=== PATIENT | female | born 1960 | race Caucasian/White ===

== ENCOUNTER 2020-10-17 11:52 | Outpatient (REF) | payer OTHER, SELFPAY | END 2020-10-17 11:53 | disposition home or self-care (01) | LOC: HO.LAB 11:52 | PROVIDERS: Visit Provider Nurse Practitioner Family | DX: Z13.89 Encounter for screening for other disorder (principal) ==

== ENCOUNTER → 2020-10-30 14:59 | Outpatient (BNVA) | payer OTHER, SELFPAY | PROVIDERS: PCP Nurse Practitioner Family; Visit Provider Advanced Practice Midwife | DX: Z76.89 Persons encountering health services in other specified circumstances (principal) ==

== ENCOUNTER 2021-03-22 06:22 | Outpatient (REF) | payer BC, SELFPAY ==
[2021-03-22 12:23] LABS: Alanine Aminotransferase 27 U/L (0-31); Albumin Level 4.6 g/dL (3.5-5.0); Alkaline Phosphatase 68 U/L (39-117); Anion Gap 13 (12-20); Aspartate Amino Transferase 18 U/L (5-31); Bilirubin Total 0.7 mg/dL (0.0-1.0); Blood Urea Nitrogen 16 mg/dL (9-16); Calcium 9.1 mg/dL (8.4-10.2); Carbon Dioxide 27 mmol/L (22-29); Chloride 107 mmol/L (96-108); Cholesterol 161 mg/dL; Estimated Glomerular Filt Rate 52; Glucose Fasting 100 mg/dL (60-99); HDL Cholesterol 58 mg/dL; LDL Cholesterol Calculated 76 mg/dl; Potassium 4.3 mmol/L (3.3-5.1); Sodium 143 mmol/L (135-145); Triglycerides 137 mg/dL
== END 2021-03-22 06:23 | disposition home or self-care (01) ==
LOC: HO.HMGCLDS 06:22
PROVIDERS: PCP Nurse Practitioner Family; Visit Provider Nurse Practitioner Family
DX: Z00.00 Encounter for general adult medical examination without abnormal findings (principal); Z20.822 Contact with and (suspected) exposure to COVID-19
CPT/HCPCS: 36415; 80053; 80061; 84443; U0005

== ENCOUNTER 2023-06-26 08:28 | Outpatient (AMB) | payer BC, SELFPAY ==
--- NOTE | 2023-06-26 09:11 | MHC.OFFWIV ---
Intake Vital Signs 06/26/23 09:13 Height 5 ft 4 in BP 114/70 Blood Pressure Location Lt brachial Position Sitting Pulse 83 Pulse Source Pulse Oximeter Temp 96.8 F Temp Source Temporal Artery Scan Pulse Oximetry (%) 97 Oxygen Delivery Method Room Air Intake Visit Reasons: EP Headache/BP Check (Lobby) Intake Note: Pt is here requesting a bp check. Pt is also requesting refills on atorvastatin and losartan. Patient Tobacco Use Status: Never used Tobacco Allergies aspartame Allergy (Severe, Verified 06/26/23 09:11) mouth feels on fire, throat swells codeine [CODEINE] Allergy (Mild, Verified 06/26/23 09:11) NAUSEA & VOMITING Codeine Sulfate Allergy (Mild, Uncoded 06/26/23 09:11) nausea, vomiting Do you need a note to return to daycare/school/sports/work: No HPI HPI Comments History of Present Illness Details 62-year-old female who presents for medication refill. Patient states that her prescriptions are getting rate is she has not seen a doctor in a little while. She called to have her prescriptions be [place] at that she need to come in and see a provider her but not schedule for 2 weeks. She was told she needed to come in and have her blood pressure checked and have her medications refilled. She denies any symptoms at this time. [facility], [facility] Social History Alcohol intake: current Alcohol intake frequency: a few times a week Patient Tobacco Use Status: Never used Tobacco Sexual orientation: Straight/Heterosexual Review of Systems Const All systems reviewed & are unremarkable except as noted in HPI and below Denies fever(s), Denies headache(s) and Denies weakness Eyes Reports no additional complaints ENT Reports no additional complaints and Denies headache(s) Card Reports no additional complaints, Denies chest pain, Denies leg edema and Denies dyspnea Resp Denies cough and Denies dyspnea GI Denies abdominal pain, Denies nausea and Denies vomiting Denies urinary frequency and Denies dysuria Musc Reports no additional complaints Neuro Denies headache(s) and Denies weakness Psych Reports no additional complaints Endo Reports no additional complaints Physical Exam Vital Signs: Last Vital Signs Temp 96.8 F 06/26/23 09:13 Pulse 83 08/03/23 09:13 BP 114/70 06/26/23 09:13 Pulse Ox 97 06/26/23 09:13 Oxygen Delivery Method Room Air 06/26/23 09:13 Resp Effort & Inspection: normal respiratory effort Auscultation: clear to auscultation bilaterally Cardio Rate: regular rate Rhythm: regular rhythm Assessment & Plan Assessment & Plan (1) Medication refill: Code(s): Z76.0 - Encounter for issue of repeat prescription Plan VSS. Exam patient presents alert and oriented in no acute distress exam is otherwise unremarkable. Will refill medications. Discharge instructions, follow up and treatment are discussed with patient in my usual fashion. Alternatives in treatment are also discussed. The patient will return for worsening symptoms or as needed. Advised that any labs/imaging ordered will be followed up on and contact made if further treatment needed. Counseled that patient's condition may require further evaluation and/or treatment. Symptoms of concern for worsening disorder discussed in detail in my customary manner. Patient does verbalize understanding of the plan, there are no apparent barriers to communication. The patient is given the opportunity to ask questions and have them answered to his/her satisfaction Medications: New atorvastatin 20 mg PO DAILY 30 days 30 tabs 0RF losartan 25 mg PO DAILY 30 days 30 tabs 0RF Coding Level of Care Code Est Pt Level 2 (67839) Diagnoses Medication refill Z76.0
[2023-06-26 09:13] VITALS: BP 114/70; PULSE 83; TEMP 36; O2SAT 97
== END 2023-06-26 09:53 | disposition home or self-care (01) ==
PROVIDERS: PCP Nurse Practitioner Family; Visit Provider Physician Assistant
DX: Z76.0 Encounter for issue of repeat prescription (principal)
CPT/HCPCS: 99212

== ENCOUNTER 2023-07-10 08:28 | Outpatient (AMB) | payer BC, SELFPAY ==
--- NOTE | 2023-07-10 08:49 | A.OFFPC_ITS ---
Vital Signs 07/10/23 08:52 Height 5 ft 4 in Weight 180 lb BMI 30.9 BP 132/86 Blood Pressure Location Rt brachial Position Sitting Pulse 81 Pulse Source Pulse Oximeter Pulse Oximetry (%) 96 Oxygen Delivery Method Room Air Intake Visit Reasons: Medication follow up Allergies aspartame Allergy (Severe, Verified 07/10/23 08:53) mouth feels on fire, throat swells codeine [CODEINE] Allergy (Mild, Verified 07/10/23 08:53) NAUSEA & VOMITING Codeine Sulfate Allergy (Mild, Uncoded 07/10/23 08:53) nausea, vomiting Medication List - Last Reconciled 07/10/23 [facility] ator[facility]atin 20 mg PO DAILY 30 days fluticasone propionate 50 mcg/actuation (Allergy Relief (fluticasone)) 1 spray intranasal BID 30 days losartan 25 mg PO DAILY 30 days Tobacco use date assessed: 07/10/23 Dental Screening Dental Screen Date: 07/10/23 Did you have a dental visit in the last 12 months?: No Did you have a dental problem in the last 6 months where you did not have access to dental care?: No Was dental information given to patient?: Patient has dentist HPI Medication follow up HPI Details Pt is here for a PE. Will order labs. Colon screen is up to date. Has a churn tender appointment scheduled. Mammo is scheduled. Will order bone density and vitamin D. [facility] Social History Housing: House Alcohol intake: current Alcohol intake frequency: a few times a week Patient Tobacco Use Status: Never used Tobacco e-Cigarette/Vaping Use: Never Used Sexual orientation: Straight/Heterosexual Cognitive needs: No Hearing needs: No Vision needs: No Review of Systems Const Denies chills and Denies fever(s) Eyes Denies blurry vision ENT Denies vertigo, Denies dizziness and Denies sore throat Card Denies chest pain at rest, Denies chest pain with activity, Denies diaphoresis, Denies dyspnea and Denies dyspnea on exertion Resp Denies cough, Denies dyspnea, Denies dyspnea on exertion and Denies wheezing GI Denies abdominal pain, Denies melena, Denies hematochezia, Denies constipation, Denies diarrhea and Denies loose stools Denies hematuria Musc Denies numbness and Denies tingling Skin/Breast Denies lesions Neuro Denies vertigo, Denies dizziness, Denies numbness and Denies tingling Psych Denies anxiety, Denies depression, Denies homicidal ideation, Denies suicidal ideation and Denies other (substance abuse) Aller/Immun Denies wheezing Physical exam (Primary Care) Vital Signs: Last Vital Signs Pulse 81 07/10/23 08:52 BP 132/86 07/10/23 08:52 Pulse Ox 96 07/10/23 08:52 Oxygen Delivery Method Room Air 07/10/23 08:52 BMI result Body Mass Index 30.9 Tobacco/Smoking Status: Tobacco use Status Tobacco use date assessed 07/10/23 07/10/23 08:56 Patient Tobacco Use Status Never used Tobacco 07/10/23 08:51 e-Cigarette/Vaping Use Never Used 07/10/23 08:56 Const General: cooperative Nutritional Appearance: well nourished Orientation/consciousness: patient oriented x3 HENMT Head: Yes normal to inspection, Yes normocephalic and Yes atraumatic Ears: TM's normal bilaterally Eyes General: appearance normal, both eyes and all related structures Alignment and Position: alignment normal and position normal Neck Neck: Yes normal visual inspection and Yes no lymphadenopathy Thyroid: Thyroid normal Resp Effort & Inspection: normal respiratory effort Auscultation: clear to auscultation bilaterally Cardio Rate: regular rate Rhythm: regular rhythm Heart sounds: S1 normal heart sound present, S2 normal heart sound present and no murmurs GI Palpation (GI): Soft to palpation and nontender Auscultation: normal bowel sounds Skin Rashes: no rashes Neuro General: patient oriented x3, moves all extremities, no focal motor deficits and deep tendon reflexes 2+ bilaterally Romberg Test: Negative Psych Appearance: grossly normal Mental Status: mental status grossly normal Speech and movement: Normal speech and movement present Affect: normal affect Attitude: cooperative Thought process: Normal thought process present Thought content: Normal thought content present Insight: Good insight present (Psych) Judgement: Good judgement present (Psych) Assessment and Plan Assessment & Plan (1) Post-menopausal: Code(s): Z78.0 - Asymptomatic menopausal state Plan: Bone density and vitamin D ordered (2) Physical exam: Code(s): Z00.00 - Encounter for general adult medical examination without abnormal findings Plan: Labs ordered Plan The patient agreed to the use of a medical charge entry specialist for this encounter. Scribed for DENIZ Cedeño by Phuong Doshi medical charge entry specialist, on 07/10/2023 at 09:05 EST. Orders: Orders XR DEXA axial skeleton Today Z78.0 - Asymptomatic menopausal state Vitamin D 25-OH Total Today Z78.0 - Asymptomatic menopausal state Comprehensive [place]. Panel Fast Today Z00.00 - Encounter for general adult medical examination without abnormal findings Lipid Panel Today Z00.00 - Encounter for general adult medical examination without abnormal findings TSH reflex Free T4 Today Z00.00 - Encounter for general adult medical examination without abnormal findings Complete Blood Count Auto Diff Today Z00.00 - Encounter for general adult medical examination without abnormal findings UA CC w/rflx Micro + Cult Today Z00.00 - Encounter for general adult medical examination without abnormal findings Medications: Refilled fluticasone propionate 50 mcg/actuation (Allergy Relief (fluticasone)) administer into each nostril 1 spray intranasal BID 30 days 16 grams 3RF Coding Level of Care Code Est Pt Prev Care 40-64y(70893) Diagnoses Post-menopausal Z78.0 Physical exam Z00.00
[2023-07-10 08:52] VITALS: BP 132/86; PULSE 81; O2SAT 96; BMI 30.9
== END 2023-07-10 09:17 | disposition home or self-care (01) ==
PROVIDERS: Visit Provider Nurse Practitioner Family
DX: Z78.0 Asymptomatic menopausal state (principal); Z00.00 Encounter for general adult medical examination without abnormal findings
CPT/HCPCS: 99396

== ENCOUNTER 2023-07-10 09:18 | Outpatient (REF) | payer BC, SELFPAY ==
[2023-07-10 11:08] LABS: MANUAL DIFF FLAG NO
[2023-07-10 11:37] LABS: Basophils Percent Auto 0.3 % (0-2); Eosinophils Absolute Auto 0.1 X10*3/uL (0.0-0.4); Eosinophils Percent Auto 1.6 % (0-4); Hematocrit 39.3 % (37.0-47.0); Hemoglobin 12.9 g/dl (12.0-16.0); Imm Gran Abs Auto 0.02 X10*3/uL (0.00-0.03); Imm Gran Pct Auto 0.3 % (0.0-0.4); Lymphocytes Absolute Auto 2.1 X10*3/uL (1.2-4.9); Lymphocytes Percent Auto 29.6 % (20-40); Mean Corpuscular HGB Conc 32.8 g/dl (31.0-35.0); Mean Corpuscular Hemoglobin 29.9 pg (27.0-33.0); Mean Corpuscular Volume 91.2 fL (80.0-98.0); Mean Platelet Volume 12.7 fL (9.4-12.3); Monocytes Absolute Auto 0.4 X10*3/uL (0.1-1.2); Monocytes Percent Auto 5.8 % (2-11); Neutrophils Absolute Auto 4.4 x10*3/uL (2.0-8.3); Neutrophils Percent Auto 62.4 % (45-73); Platelet Count 204 X10*3/uL (160-400); Red Blood Count 4.31 X10*6/uL (4.20-5.50); Red Cell Distribution Width 12.3 % (11.0-16.0); White Blood Count 7.1 X10*3/uL (4.8-10.8)
[2023-07-10 11:55] LABS: Appearance Urine Cloudy; Color Urine Yellow; Glucose Urine UA Negative (Negative); Leukocyte Esterase Urine Large (3+) (Negative); Nitrite Urine Negative (Negative); PH 6.5 (5.0-9.0); UMIC TRIGGER UACC YES; Urine Blood Negative (Negative); Urine Ketones Negative (Negative); Urine Protein Trace mg/dL (Neg-Trace)
[2023-07-10 11:57] LABS: Alanine Aminotransferase 31 U/L (0-31); Albumin Level 4.5 g/dL (3.5-5.0); Alkaline Phosphatase 69 U/L (39-117); Anion Gap 10 (12-20); Aspartate Amino Transferase 19 U/L (5-31); Bilirubin Total 0.8 mg/dL (0.0-1.0); Blood Urea Nitrogen 19 mg/dL (9-16); Calcium 9.5 mg/dL (8.4-10.2); Carbon Dioxide 28 mmol/L (22-29); Chloride 107 mmol/L (96-108); Cholesterol 153 mg/dL; Estimated Glomerular Filt Rate 58; Glucose Fasting 101 mg/dL (60-99); HDL Cholesterol 50 mg/dL; LDL Cholesterol Calculated 70 mg/dl; Sodium 141 mmol/L (135-145); Total Protein 7.3 g/dL (6.5-8.0); Triglycerides 166 mg/dL
[2023-07-10 12:00] LABS: Bacteria Urine 2+ (None Seen); Hyaline Casts Urine 0-2 /LPF (0-2); UACC Culture Trigger YES; WBC Urine >50 /HPF (0-5)
[2023-07-10 12:15] LABS: Vitamin D 25-OH Total 46.7 ng/mL (>30)
== END 2023-07-10 09:19 | disposition home or self-care (01) ==
LOC: HO.HMGCLDS 09:18
PROVIDERS: PCP Nurse Practitioner Family; Visit Provider Nurse Practitioner Family
DX: Z00.00 Encounter for general adult medical examination without abnormal findings (principal); Z78.0 Asymptomatic menopausal state; R82.90 Unspecified abnormal findings in urine; M85.80 Other specified disorders of bone density and structure, unspecified site
CPT/HCPCS: 36415; 80053; 80061; 81001; 82306; 84443; 85025; 87086

== ENCOUNTER 2023-07-18 14:27 | Outpatient (REF) | payer BC, SELFPAY ==
--- NOTE | ~2023-07-18 | MM_ITS ---
MM/XR DEXA axial skeleton IMPRESSION: 1. DIAGNOSIS: Osteopenia based on the lowest T-score value of -2.0 in the femoral neck applying World Health Organization criteria. 2. 10-YEAR FRACTURE RISK PREDICTION, FRAX: Major osteoporotic fracture (clinical spine, forearm, hip or shoulder) 9.8%. Hip fracture 1.3%. 3. Treatment Recommendations: NOF guidelines recommend consideration for treatment in postmenopausal women and men age 50 and older presenting with the following: -A hip or vertebral (clinical or morphometric) fracture. -T-score less than or equal to -2.5 at the femoral neck or spine after appropriate evaluation to exclude secondary causes. -Low bone mass at the hip or spine and a 10-year fracture probability by FRAX of greater than or equal to 3% for hip fracture or greater than or equal to 20% for major osteoporotic fracture based on the [place] adapted WHO algorithm. 4. Other Recommendations: All treatment decisions require clinical judgment and consideration of individual patient factors, including patient preferences, comorbidities, previous drug use, risk factors not captured in the FRAX model (e.g. frailty, falls, vitamin D deficiency, increased bone turnover, interval significant decline in bone density) and possible under or overestimation of fracture risk by FRAX. Additional medical evaluation for secondary cause of low bone mineral density may be appropriate. FUTURE SCAN RECOMMENDATION: People with diagnosed cases of osteoporosis or at high risk for fracture should have regular bone mineral density tests. For patients eligible for Medicare, routine testing is allowed once every 2 years. The testing frequency can be increased to one year for patients who have rapidly progressing disease, those who are receiving or discontinuing medical therapy to restore bone mass, or have additional risk factors. EXAMINATION: BONE DENSITOMETRY CLINICAL INDICATION: Asymptomatic menopausal state. COMPARISON: This is the patient's baseline examination. TECHNIQUE: Using a [employer] DXA System (software version: 13.1) manufactured by [employer], dual-energy x-ray absorptiometry was performed of the lumbar spine and left hip. The images are of good technical quality. Summary results are attached. FINDINGS: LEFT FEMUR, NECK: BMD 0.760 g/cm2, Z-score -1.0, T-score -2.0, osteopenia. LEFT FEMUR, TOTAL: BMD 0.882 g/cm2, Z-score -0.4, T-score -1.0, normal. AP SPINE L1-L4: BMD 1.051 g/cm2, Z-score -0.3, T-score -1.1, osteopenia. IDENTIFIED RISK FACTORS: Left oophorectomy, menopause. HISTORY OF FRACTURE: None listed. MEDICATIONS: Vitamin D.
== END 2023-07-18 14:28 | disposition home or self-care (01) ==
LOC: HO.MAMMO 14:27
PROVIDERS: PCP Nurse Practitioner Family; Visit Provider Nurse Practitioner Family
DX: Z13.820 Encounter for screening for osteoporosis (principal); Z78.0 Asymptomatic menopausal state
CPT/HCPCS: 77080

== ENCOUNTER → 2023-07-18 14:30 | Outpatient (BNV) | payer BC, SELFPAY | PROVIDERS: PCP Nurse Practitioner Family; Visit Provider Radiology Diagnostic Radiology | DX: M85.89 Other specified disorders of bone density and structure, multiple sites (principal) | CPT/HCPCS: 77080 ==

== ENCOUNTER 2023-10-15 08:37 | Outpatient (AMB) | payer BC, SELFPAY ==
--- NOTE | 2023-10-15 09:17 | AM.OFFWIN_ITS ---
<Statement entered by SERGIO Greer - 10/15/23 14:12> I did not see this patient. Intake Vital Signs 3 10/15/23 09:19 Weight 182 lb BP 132/90 H Blood Pressure Location Lt brachial Position Sitting Pulse 81 Pulse Source Pulse Oximeter Pulse Oximetry (%) 98 Oxygen Delivery Method Room Air Intake Visit Reasons: EST/sinus issues for 2 weeks (lobby masked) Intake Note: Patient here because she is traveling and needs patches for sea sickness that go behind the ears. Has been having sinus issues for about 2 weeks. she went to [place] and started with post nasal drip but it has worsened. She has been taking otc meds. Patient Tobacco Use Status: Never used Tobacco Allergies aspartame Allergy (Severe, Verified 10/15/23 09:24) mouth feels on fire, throat swells codeine [CODEINE] Allergy (Mild, Verified 10/15/23 09:24) NAUSEA & VOMITING Codeine Sulfate Allergy (Mild, Uncoded 10/15/23 09:24) nausea, vomiting Do you need a note to return to daycare/school/sports/work: No HPI HPI Comments History of Present Illness Details 1006 63 year female presents w/ sinus congest ion, fatigue, malaise, post nasal drip X 2 weeks worsening Status post can coming back home from a trip from [place]. She has frequent sinus infections. Not improving with OTC meds. Also requesting a medication for motion sickness going on a 18 day cruise and gets sea-sick. denies chest pain, shortness of breath, nausea, vomiting, abdominal pain, fevers, chills, vision changes, dizziness and weakness PE discomfort to facial sinuses. negative NIH stroke scale likely sinusitis, versus viral illness. Unlikely intracranial hemorrhage, stroke, posterior stroke, meningitis, encephalitis. No signs of pneumonia, PE. Plan at this time discharge with Augmentin and will send scopolamine patches [facility] Housing: House Alcohol intake: current Alcohol intake frequency: a few times a week Patient Tobacco Use Status: Never used Tobacco e-Cigarette/Vaping Use: Never Used Sexual orientation: Straight/Heterosexual Cognitive needs: No Hearing needs: No Vision needs: No Review of Systems Const Details: Constitutional : No Weight loss, No Fever, No Chills, + Fatigue, + Malaise ENT/Mouth : No sore throat, No Rhinorrhea, + sinus infection Eyes: No Eye Pain, No Swelling, No Redness Cardiovascular : No Chest Pain, No SOB, No Dyspnea on Exertion, No Orthopnea, No Edema, No Palpitations Respiratory : No Cough, No Sputum, No Wheezing Gastrointestinal : No Nausea, No Vomiting, No Diarrhea, No Constipation, No abdominal Pain, No Hematochezia, No Melena Genitourinary : No Dysuria, No Urinary Frequency, No Hematuria, Musculoskeletal : No joint pain, No Myalgias, No Joint Swelling Skin : No Skin Lesions, No rash Neuro : + Weakness, No Numbness, No Dizziness, No Headache Psych : No Anxiety/Panic, No Depression All other systems reviewed and are negative All systems reviewed & are unremarkable except as noted in HPI and below Physical Exam Vital Signs: Last Vital Signs Pulse 81 10/15/23 09:19 BP 132/90 H 10/15/23 09:19 Pulse Ox 98 10/15/23 09:19 Oxygen Delivery Method Room Air 10/15/23 09:19 vss Appearance: Alert.? Oriented X3.? No acute distress.? Head: Normocephalic, atraumatic, no step-offs or deformities Eyes: Pupils equal, round and reactive to light.? Neck: Normal inspection.? Neck supple.? CVS: Normal heart rate and rhythm.? Pulses normal.? Respiratory: No respiratory distress.? Breath sounds normal.? Abdomen: Soft and nontender.? Skin: Skin warm and dry.? Normal skin color.? Normal skin turgor.? Extremities: No lower extremity edema.? No calf ttp. 5/5 strength to bilateral upper and lower extremities Back: No midline tenderness, no C-spine tenderness, full range of motion, no CVA tenderness bilaterally Neuro: Oriented X 3.? No motor deficit.? No sensory deficit. CN 2-12 intact. Normal finger to nose, heel to womack Assessment & Plan Assessment & Plan (1) Acute sinusitis: Code(s): J01.90 - Acute sinusitis, unspecified (2) Motion sickness: Code(s): T75.3XXA - Motion sickness, initial encounter Plan Take your medications as prescribed. If you were prescribed antibiotics today, it is important that you take your medication to their entirety, do not skip any doses, do not finish them early. Follow-up with your primary care provider this week. Return to the emergency department with new or worsening symptoms. In case of emergency call 911 Coding Level of Care Code Est Pt Level 3 (09536) Diagnoses Acute sinusitis J01.90 Motion sickness T75.3XXA
[2023-10-15 09:19] VITALS: BP 132/90; PULSE 81; O2SAT 98
== END 2023-10-15 11:13 | disposition home or self-care (01) ==
PROVIDERS: PCP Nurse Practitioner Family; Visit Provider Physician Assistant
DX: J01.90 Acute sinusitis, unspecified (principal); T75.3XXA Motion sickness, initial encounter
CPT/HCPCS: 99213

== ENCOUNTER 2023-11-26 08:39 | Outpatient (AMB) | payer BC, SELFPAY ==
[2023-11-26 08:41] VITALS: BP 122/80; BMI 31.8
--- NOTE | 2023-11-26 08:41 | MHC.OFFVIS ---
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 She is doing well with concerns: some stress incontinence with chronic allergy cough. Attempting to eat a healthy diet with calcium and vitamin D and stays active with exercise. Currently sexually active. Denies any vaginal dryness or irritation. STI testing offered; she declines. Last pap smear; 2016. Last mammogram; 2022. Colonoscopy is UTD. Denies any family history of breast, ovarian or colon cancer. [facility] Medical History Breast cyst High cholesterol Hypertension Osteopenia Surgical History History of bunionectomy H/O ovarian cystectomy Family History (Updated 11/26/23 @ 09:13 by Olivia Sifuentes Aishwarya) Mother Lung cancer Father Prostate cancer Hypertension Social History Housing: House Alcohol intake: current Alcohol intake frequency: a few times a week Patient Tobacco Use Status: Never used Tobacco e-Cigarette/Vaping Use: Never Used Sexually active: No Sexual orientation: Straight/Heterosexual Gender identity: Female Cognitive needs: No Hearing needs: No Vision needs: No Female Reproductive History Menstrual Menopause type: natural Age of menopause: 50 Total pregnancies: 2 Full term: 1 Number of Living Children: 1 Date of last pap smear: 10/09/17 (neg pap and hpv) Date of Mammogram: 08/18/23 (Birad 2) Review of Systems Const All systems reviewed & are unremarkable except as noted in HPI and below Reports as per HPI Eyes Reports no additional complaints ENT Reports no additional complaints Card Reports no additional complaints Resp Reports no additional complaints GI Reports as per HPI and Reports no additional complaints Reports as per HPI Musc Reports no additional complaints Skin/Breast Reports as per HPI Neuro Reports no additional complaints Psych Reports no additional complaints Endo Reports no additional complaints Vivek/Lymph Reports no additional complaints Aller/Immun Reports no additional complaints Physical Exam Vital Signs: Last Vital Signs BP 122/80 11/26/23 08:41 BMI result Body Mass Index 31.8 Const General: cooperative, healthy appearing, no acute distress, well developed and alert Orientation/consciousness: patient oriented x3 HEENT Head: Yes normal to inspection Eyes General: appearance normal, both eyes and all related structures Neck Neck: Yes normal visual inspection Thyroid: Thyroid normal Chest Chest palpation & inspection: normal inspection of the chest and other (no puckering, dimpling, peau de orange, retraction, discharge, masses) Breast/axilla inspection: normal inspection of the breasts Breast/axilla palpation: normal palpation of the breasts Resp Effort & Inspection: normal respiratory effort GI Inspection: Yes normal to inspection and Yes obesity (rectus diastasis) Palpation (GI): Soft to palpation Rectal Exam - Female: deferred General: Yes bladder normal to palpation External Female Exam: normal external appearance and normal appearance of the urethra Speculum Exam - Vagina: normal appearance of the vagina, normal palpation, normal vaginal discharge and vagina atrophic Speculum Exam - Cervix: normal appearance of the cervix and normal palpation Bimanual exam- vagina & uterus: normal bimanual exam, normal palpation, uterine size normal, bladder normal to palpation, normal palpation and non-tender Bimanual Exam- Adnexa, other: no masses Skin General skin exam: no rashes or lesions noted Rashes: no rashes Neuro General: patient oriented x3 Cognition (Neuro): normal cognition Extrem General: Yes normal to inspection Psych Attitude: cooperative Thought process: Normal thought process present Assessment & Plan Assessment & Plan (1) Encounter for well woman exam with routine gynecological exam: Code(s): Z01.419 - Encounter for gynecological examination (general) (routine) without abnormal findings Plan Discussed: Current recommendations for pap smears per ASCCP guidelines. Breast awareness, periodic self breast exams and yearly mammogram. Maintain a healthy lifestyle, well balanced diet including Calcium 1,200 mg and Vitamin D 600 IU daily, and routine exercise. Consider Flaxseed 1,200mg qd. Contact the office with any postmenopausal bleeding. All of her questions and concerns were addressed to the best of my ability. RTO in 1 year for annual machine tracer exam. This note is constructed using voice recognition software. While every effort has been made to ensure accuracy, chemist instrumentation errors may have been included. Orders: Orders MM tomosynthesis screening BI Today Z12.31 - Encounter for screening mammogram for malignant neoplasm of breast Pap Smear Today Z01.419 - Encounter for gynecological examination (general) (routine) without abnormal findings Coding Level of Care Code New Pt Prev Care 40-64y(41844) Diagnoses Encounter for well woman exam with routine gynecological exam Z01.419
== END 2023-11-26 09:20 | disposition home or self-care (01) ==
LOC: HO.HWS 08:39
PROVIDERS: PCP Nurse Practitioner Family; Visit Provider Advanced Practice Midwife
DX: Z01.419 Encounter for gynecological examination (general) (routine) without abnormal findings (principal)
CPT/HCPCS: 99386

== ENCOUNTER 2023-11-26 08:39 | Outpatient (REF) | payer BC, SELFPAY | END 2023-11-26 08:40 | disposition home or self-care (01) | LOC: HO.LNP 08:39 | PROVIDERS: PCP Nurse Practitioner Family; Visit Provider Advanced Practice Midwife | DX: Z01.419 Encounter for gynecological examination (general) (routine) without abnormal findings (principal); Z11.51 Encounter for screening for human papillomavirus (HPV) | CPT/HCPCS: 87624; 88142 ==

== ENCOUNTER 2024-03-16 14:40 | Outpatient (AMB) | payer BC, SELFPAY ==
--- NOTE | 2024-03-16 14:43 | A.OFFVIS_ITS ---
Vital Signs 03/16/24 14:50 Height 5 ft 4 in Weight 180 lb BMI 30.9 BP 138/70 Blood Pressure Location Lt brachial Position Sitting Pulse 84 Intake Visit Reasons: Colonoscopy Screening Intake Note: Patient new consult for 2nd pre colonoscopy screening. Patient denies any GI issues. 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 Accompanied by: Self / Same As Patient Allergies aspartame Allergy (Severe, Verified 03/16/24 14:43) mouth feels on fire, throat swells codeine [CODEINE] Allergy (Mild, Verified 03/16/24 14:43) NAUSEA & VOMITING Codeine Sulfate Allergy (Mild, Uncoded 10/15/23 09:24) nausea, vomiting Medication List - Last Reconciled 03/16/24 by Lu Hanley PA-C atorvastatin 20 mg PO DAILY 90 days fluticasone propionate 50 mcg/actuation (Allergy Relief (fluticasone)) 1 spray intranasal BID 30 days losartan 25 mg PO DAILY 90 days HPI Comments Details: A 63 y/o female referred colonoscopy last 10 years ago- was normal She works full-time she has no GI or general she stays Bowels are normal Appetite is good No cardiac or respiratory issues No nausea, vomiting, hematemesis, hematochezia fever or chills PFSH Medical History Breast cyst High cholesterol Hypertension Osteopenia Surgical History History of bunionectomy H/O ovarian cystectomy Family History Mother Lung cancer Father Prostate cancer Hypertension Social History Housing: House Alcohol intake: current Alcohol intake frequency: a few times a week Patient Tobacco Use Status: Never used Tobacco e-Cigarette/Vaping Use: Never Used Sexual orientation: Straight/Heterosexual Gender identity: Female Cognitive needs: No Hearing needs: No Vision needs: No Review of Systems Const All systems reviewed & are unremarkable except as noted in HPI and below Physical Exam Vital Signs: Last Vital Signs Pulse 84 03/16/24 14:50 BP 138/70 04/23/24 14:50 BMI result Body Mass Index 30.9 Const General: cooperative, healthy appearing, comfortable and no acute distress Orientation/consciousness: patient oriented x3 Limitations: no limitations Resp Effort & Inspection: normal respiratory effort and able to speak in complete sentences Auscultation: clear to auscultation bilaterally, no rales, no rhonchi and no wheezes Cardio Rate: regular rate Rhythm: regular rhythm Heart sounds: S1 normal heart sound present and S2 normal heart sound present GI Palpation (GI): Soft to palpation and nontender Percussion: Yes normal to percussion Skin General skin exam: no rashes or lesions noted Neuro General: patient oriented x3 Extrem General: Yes full ROM Psych Appearance: grossly normal and well kempt Mental Status: mental status grossly normal Speech and movement: Normal speech and movement present and Clear speech present Affect: normal affect Attitude: cooperative Thought process: Normal thought process present Thought content: Normal thought content present Insight: Good insight present (Psych) Judgement: Good judgement present (Psych) Assessment & Plan Assessment & Plan (1) Encounter for screening colonoscopy: Comment: Screening colonoscopy, discussed procedure, rare risks need for escorted due to anesthesia Code(s): Z12.11 - Encounter for screening for malignant neoplasm of colon Category: Medical Plan screening colon MG Orders: Orders Colonoscopy - GI Use Only 03/16/24 Z12.11 - Encounter for screening for malignant neoplasm of colon Medications: New bisacodyl (Dulcolax (bisacodyl)) Day before procedure @ 12 noon Take 4 tablets by mouth followed by large glass of water 20 mg (4 x 5 mg) PO ONCE 1 day PRN 4 tabs 0RF colonoscopy prep Z12.11 - Encounter for screening for malignant neoplasm of colon polyethylene glycol 3350 (Miralax) Take as directed by mouth the day before your procedure. 238 grams PO ONCE 1 day PRN 238 grams 0RF laxative effect Patient Instructions: Index screening colonoscopy MiraLax Gatorade prep, reviewed literature given Encouraged to call questions or concerns Coding Level of Care Code New Pt Level 3 (37144) Diagnoses Encounter for screening colonoscopy Z12.11 Time Spent (min) 25
[2024-03-16 14:50] VITALS: BP 138/70; PULSE 84; BMI 30.9
== END 2024-03-16 15:18 | disposition home or self-care (01) ==
PROVIDERS: PCP Nurse Practitioner Family; Referring Provider Nurse Practitioner Family; Visit Provider Physician Assistant
DX: Z01.818 Encounter for other preprocedural examination (principal); Z12.11 Encounter for screening for malignant neoplasm of colon
CPT/HCPCS: S0285

== ENCOUNTER → 2024-03-16 14:40 | Outpatient (BNVA) | payer BC, SELFPAY | PROVIDERS: PCP Nurse Practitioner Family; Visit Provider Physician Assistant ==

== ENCOUNTER 2024-07-15 07:29 | Outpatient (AMB) | payer BC, SELFPAY ==
[2024-07-15 07:40] VITALS: BP 122/82; PULSE 87; O2SAT 98; BMI 31.9
--- NOTE | 2024-07-15 07:40 | A.OFFPC_ITS ---
Vital Signs 07/15/24 07:40 Height 5 ft 4 in Weight 186 lb BMI 31.9 BP 122/82 Blood Pressure Location Lt brachial Position Sitting Pulse 87 Pulse Source Pulse Oximeter Pulse Oximetry (%) 98 Oxygen Delivery Method Room Air Intake Visit Reasons: Annual PE Allergies aspartame Allergy (Severe, Verified 07/15/24 07:52) mouth feels on fire, throat swells codeine [CODEINE] Allergy (Mild, Verified 07/15/24 07:52) NAUSEA & VOMITING Codeine Sulfate Allergy (Mild, Uncoded 07/15/24 07:52) nausea, vomiting Medication List - Last Reconciled 07/15/24 by DENIZ Chung atorvastatin 20 mg PO DAILY 90 days bisacodyl (Dulcolax (bisacodyl)) 20 mg (4 x 5 mg) PO ONCE PRN 1 day fluticasone propionate 50 mcg/actuation (Allergy Relief (fluticasone)) 1 spray intranasal BID 30 days losartan 25 mg PO DAILY 90 days polyethylene glycol 3350 (Miralax) 238 grams PO ONCE PRN 1 day Tobacco use date assessed: 07/15/24 Dental Screening Dental Screen Date: 07/15/24 Did you have a dental visit in the last 12 months?: No Did you have a dental problem in the last 6 months where you did not have access to dental care?: No Was dental information given to patient?: Patient has dentist HPI Annual PE HPI Details Pt is here for a PE. Will order labs. Colon screen is scheduled. Mammo is scheduled. 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 Bone density is up to date. Pt is interested in weight loss. Educated pt on proper diet and possible intermittent fasting/counting macros. FOR[facility]LY [facility], [facility] Medical History Breast cyst High cholesterol Hypertension Osteopenia Surgical History History of bunionectomy H/O ovarian cystectomy Family History Mother Lung cancer Father Prostate cancer Hypertension Other Substance use disorder Social History Housing: House Alcohol intake: current Alcohol intake frequency: a few times a week Patient Tobacco Use Status: Never used Tobacco e-Cigarette/Vaping Use: Never Used service: No Current occupational status: employed Sexual orientation: Straight/Heterosexual Gender identity: Female Cognitive needs: No Hearing needs: No Vision needs: Yes Questionnaire PHQ-9 Over the last 2 weeks, how often have you been bothered by any of the following problems? 1. Little interest or pleasure in doing things: not at all 2. Feeling down, depressed, or hopeless: not at all 3. Trouble falling or staying asleep, or sleeping too much: not at all 4. Feeling tired or having little energy: not at all 5. Poor appetite or overeating: not at all 6. Feeling bad about yourself - or that you are a failure or have let yourself or your family down: not at all 7. Trouble concentrating on things, such as reading the newspaper or watching television: not at all 8. Moving or speaking so slowly that other people could have noticed. Or the opposite - being so fidgety or restless that you have been moving around a lot more than usual: not at all 9. Thoughts that you would be better off or of hurting yourself in some way: not at all Total score: 0 Depression Screening Interpretation: Negative Depression Screening Done: Yes 84911 - PHQ-9 Billing: Yes Source: Developed by Drs. Sajan Winter, Odilia Saxena, Maldonado Ramos and colleagues, with an educational ric from [employer]. Thrive Questionnaire Date Thrive assessed: 07/15/24 I am a: Patient What is your living situation today?: I have a steady place to live Within the past 12 months, did the food you bought not last and you didn't have the money to get more?: Never true Within the past 12 months, did you worry whether your food would run out before you got money to buy more?: Never true Do you have trouble paying for medicines?: No Do you have trouble getting transportation to medical appointments?: No Do you have trouble paying your heating and electricity bill?: No Do you have trouble taking care of your child, family member or friend?: No Do you have trouble with day-to-day activities such as bathing, preparing meals, shopping, managing finances, etc.?: No Are you currently unemployed and looking for a job?: No Are you interested in more education?: No Please select the resources that you would like help with: None Currently or been in a relationship where the following occur: No concerns reported THRIVE Score: 0 AUDIT C Alcohol Use Questionnaire (AUDIT-C) 1. How often do you have a drink containing alcohol?: 2-4 times a month 2. How many drinks containing alcohol do you have on a typical day when you are drinking?: 1 or 2 3. How often do you have six or more drinks on one occasion?: Never Total Score: 2 Score Reviewed/Action Taken: Yes MARCELLA-7 AMB Questionnaire MARCELLA-7 Date MARCELLA - 7 assessed: 07/15/24 Feeling nervous, anxious, or on edge: 0 = Not at all Not being able to stop or control worryin = Not at all Worrying too much about different things: 0 = Not at all Trouble relaxin = Not at all Being so restless that it is hard to sit still: 0 = Not at all Becoming easily annoyed or irritable: 0 = Not at all Feeling afraid as if something awful might happen: 0 = Not at all Total MARCELLA-7 score (0-4 normal; 5-9 mild; 10-14 moderate; 15-21 severe): 0 Source: Developed by Drs. Sajan Winter, Odilia Saxena, Maldonado Ramos and colleagues, with an educational ric from [employer]. MARCELLA-7 Assessment Billing MARCELLA-7 Assessment Tool: MARCELLA-7 Assessment 48495 Review of Systems Const Denies chills and Denies fever(s) Eyes Denies blurry vision ENT Denies vertigo, Denies dizziness and Denies sore throat Card Denies chest pain at rest, Denies chest pain with activity, Denies diaphoresis, Denies dyspnea and Denies dyspnea on exertion Resp Denies cough, Denies dyspnea, Denies dyspnea on exertion and Denies wheezing GI Denies abdominal pain, Denies melena, Denies hematochezia, Denies constipation, Denies diarrhea and Denies loose stools Denies hematuria Musc Denies numbness and Denies tingling Skin/Breast Denies lesions Neuro Denies vertigo, Denies dizziness, Denies numbness and Denies tingling Psych Denies anxiety, Denies depression, Denies homicidal ideation, Denies suicidal ideation and Denies other (substance abuse) Aller/Immun Denies wheezing Physical exam (Primary Care) Vital Signs: Last Vital Signs Pulse 87 07/15/24 07:40 BP 122/82 07/15/24 07:40 Pulse Ox 98 07/15/24 07:40 Oxygen Delivery Method Room Air 07/15/24 07:40 BMI result Body Mass Index 31.9 Tobacco/Smoking Status: Tobacco use Status Tobacco use date assessed 07/15/24 07/15/24 07:45 Patient Tobacco Use Status Never used Tobacco 07/15/24 07:41 e-Cigarette/Vaping Use Never Used 07/15/24 07:41 PHQ-9: PHQ-9 Score PHQ-9: Total score 0 07/15/24 07:50 Depression Screening Interpretation: Negative Thrive Assessment: Date of Thrive Assessment Date Thrive assessed 07/15/24 07/15/24 07:45 Currently or been in a relationship where the following occur: No concerns reported Const General: cooperative Nutritional Appearance: well nourished Orientation/consciousness: patient oriented x3 HENMT Head: Yes normal to inspection, Yes normocephalic and Yes atraumatic Ears: TM's normal bilaterally Eyes General: appearance normal, both eyes and all related structures Alignment and Position: alignment normal and position normal Neck Neck: Yes normal visual inspection and Yes no lymphadenopathy Thyroid: Thyroid normal Resp Effort & Inspection: normal respiratory effort Auscultation: clear to auscultation bilaterally Cardio Rate: regular rate Rhythm: regular rhythm Heart sounds: S1 normal heart sound present, S2 normal heart sound present and no murmurs GI Other: diastasis rectis Palpation (GI): Soft to palpation and nontender Auscultation: normal bowel sounds Skin Other: faint macular erythematous dermatitis to posterior aspect of neck Neuro General: patient oriented x3, moves all extremities, no focal motor deficits and deep tendon reflexes 2+ bilaterally Romberg Test: Negative Psych Appearance: grossly normal Mental Status: mental status grossly normal Speech and movement: Normal speech and movement present Affect: normal affect Attitude: cooperative Thought process: Normal thought process present Thought content: Normal thought content present Insight: Good insight present (Psych) Judgement: Good judgement present (Psych) Assessment and Plan Assessment & Plan (1) Physical exam: Code(s): Z00.00 - Encounter for general adult medical examination without abnormal findings Plan: Labs ordered Plan The patient agreed to the use of a medical records specialist for this encounter. Scribed for DENIZ Cedeño by Phuong Doshi medical records specialist, on 07/15/2024 at 07:50 EST. Orders: Orders Complete Blood Count Auto Diff Today Z00.00 - Encounter for general adult medical examination without abnormal findings TSH reflex Free T4 Today Z00.00 - Encounter for general adult medical examination without abnormal findings Comprehensive [place]. Panel Fast Today Z00.00 - Encounter for general adult medical examination without abnormal findings UA CC w/rflx Micro + Cult Today Z00.00 - Encounter for general adult medical examination without abnormal findings Lipid Panel Today Z00.00 - Encounter for general adult medical examination without abnormal findings Vitamin D 25-OH Total Today M85.80 - Other specified disorders of bone density and structure, unspecified site Coding Level of Care Code Est Pt Prev Care 40-64y(09776) Diagnoses Physical exam Z00.00 Additional Codes MARCELLA-7 Assessment Billing - MARCELLA-7 Assessment Tool: MARCELLA-7 Assessment 52502 ([id number])
== END 2024-07-15 08:17 | disposition home or self-care (01) ==
PROVIDERS: PCP Nurse Practitioner Family; Visit Provider Nurse Practitioner Family
DX: Z00.00 Encounter for general adult medical examination without abnormal findings (principal)
CPT/HCPCS: 99396

== ENCOUNTER 2024-07-15 08:17 | Outpatient (REF) | payer BC, SELFPAY ==
[2024-07-15 10:06] LABS: MANUAL DIFF FLAG NO
[2024-07-15 10:08] LABS: Appearance Urine Clear; Color Urine Yellow; Glucose Urine UA Negative (Negative); Leukocyte Esterase Urine Negative (Negative); Nitrite Urine Negative (Negative); Specific Gravity - Urine 1.025 (1.005-1.025); Urine Blood Negative (Negative); Urine Ketones Negative (Negative); Urine Protein Trace mg/dL (Neg-Trace)
[2024-07-15 10:12] LABS: Basophils Percent Auto 0.5 % (0-2); Eosinophils Absolute Auto 0.1 X10*3/uL (0.0-0.4); Eosinophils Percent Auto 1.8 % (0-4); Hematocrit 39.6 % (37.0-47.0); Imm Gran Abs Auto 0.01 X10*3/uL (0.00-0.03); Imm Gran Pct Auto 0.2 % (0.0-0.4); Lymphocytes Percent Auto 32.8 % (20-40); Mean Corpuscular HGB Conc 32.8 g/dl (31.0-35.0); Mean Corpuscular Hemoglobin 30.2 pg (27.0-33.0); Mean Corpuscular Volume 92.1 fL (80.0-98.0); Mean Platelet Volume 12.2 fL (9.4-12.3); Monocytes Absolute Auto 0.4 X10*3/uL (0.1-1.2); Neutrophils Absolute Auto 3.5 x10*3/uL (2.0-8.3); Neutrophils Percent Auto 57.7 % (45-73); Platelet Count 215 X10*3/uL (160-400); Red Cell Distribution Width 12.4 % (11.0-16.0)
[2024-07-15 10:37] LABS: Alanine Aminotransferase 31 U/L (0-31); Albumin Level 4.5 g/dL (3.5-5.0); Alkaline Phosphatase 64 U/L (39-117); Anion Gap 12 (12-20); Aspartate Amino Transferase 20 U/L (5-31); Bilirubin Total 0.6 mg/dL (0.0-1.0); Blood Urea Nitrogen 22 mg/dL (9-16); Calcium 9.5 mg/dL (8.4-10.2); Carbon Dioxide 27 mmol/L (22-29); Chloride 108 mmol/L (96-108); Cholesterol 138 mg/dL (<200); Estimated Glomerular Filt Rate 54; Glucose Fasting 110 mg/dL (60-99); HDL Cholesterol 50 mg/dL (>40); LDL Cholesterol Calculated 69 mg/dL (<100); Potassium 4.5 mmol/L (3.3-5.1); Sodium 142 mmol/L (135-145); Total Protein 7.1 g/dL (6.5-8.0); Triglycerides 99 mg/dL (<150)
[2024-07-15 10:42] LABS: TSH reflex Free T4 1.71 uIU/mL (0.32-4.0); Vitamin D 25-OH Total 48.5 ng/mL (>30)
== END 2024-07-15 08:18 | disposition home or self-care (01) ==
LOC: HO.HMGCLDS 08:17
PROVIDERS: PCP Nurse Practitioner Family; Visit Provider Nurse Practitioner Family
DX: Z00.00 Encounter for general adult medical examination without abnormal findings (principal); M85.80 Other specified disorders of bone density and structure, unspecified site
CPT/HCPCS: 36415; 80053; 80061; 81003; 82306; 84443; 85025

== ENCOUNTER 2024-07-19 14:28 | Outpatient (REF) | payer BC, SELFPAY ==
--- NOTE | ~2024-07-19 | MM_ITS ---
EXAMINATION: MM SCREENING DIGITAL BREAST TOMOSYNTHESIS, BILATERAL CLINICAL INFORMATION: Screening. Asymptomatic. COMPARISON: Mammography: This study is compared with prior exams dating back to 2020. TECHNIQUE: Digital breast tomosynthesis is performed in both the craniocaudal and mediolateral oblique views along with computer-aided detection (CAD). Synthesized 2D images are generated from the tomosynthesis. FINDINGS: There are scattered areas of fibroglandular density (ACR BI-RADS breast composition Category b). There are no significant masses, abnormal calcifications, or other abnormalities. MM/MM tomosynthesis screening BI IMPRESSION: No mammographic evidence of malignancy. ASSESSMENT: BI-RADS BI-RADS 1 - Negative RECOMMENDATION: Routine annual mammography screening. 1 year F/U This examination should not preclude the clinical evaluation of a suspicious palpable abnormality. This patient's information was entered into a reminder system with a target due date for their next mammogram. Electronically signed by: Crystal Collins MD 08/12/2024 10:36 PM EDT
== END 2024-07-19 14:29 | disposition home or self-care (01) ==
LOC: HO.MAMMO 14:28
PROVIDERS: PCP Nurse Practitioner Family; Visit Provider Advanced Practice Midwife
DX: Z12.31 Encounter for screening mammogram for malignant neoplasm of breast (principal)
CPT/HCPCS: 77063; 77067

== ENCOUNTER → 2024-07-19 14:45 | Outpatient (BNV) | payer BC, SELFPAY | PROVIDERS: PCP Nurse Practitioner Family; Visit Provider Radiology Diagnostic Radiology | DX: Z12.31 Encounter for screening mammogram for malignant neoplasm of breast (principal) | CPT/HCPCS: 77063; 77067 ==

== ENCOUNTER 2024-08-27 09:52 | Day surgery (SDC) | payer BC, SELFPAY ==
--- NOTE | 2024-08-26 09:14 | HO.ANESPROP2 ---
Documented by User: Gabby Dolan NP 08/26/24 09:15 HPI - Anesthesia Eval Consult details Narrative: 63yo F for Colonoscopy PMF Active Problems Active Problems: All Active Problems Encounter for screening colonoscopy (Acute) Osteopenia (Acute) Post-menopausal (Acute) Tracheobronchitis (Acute) Encounter for screening for COVID-19 (Acute) Physical exam (Acute) Allergies (Acute) Cough (Acute) Past Medical History Medical History (Updated 08/27/24 @ 10:03 by Arpita Easton RN) Breast cyst High cholesterol Hypertension Osteopenia Family History Family History Mother Lung cancer Father Prostate cancer Hypertension Other Substance use disorder Surgical History Surgical History (Updated 08/27/24 @ 10:03 by Arpita Easton RN) H/O colonoscopy History of bunionectomy H/O ovarian cystectomy Social History Social History Housing: House Alcohol intake: current Alcohol intake frequency: a few times a week Patient Tobacco Use Status: Never used Tobacco e-Cigarette/Vaping Use: Never Used Use of substances other than those prescribed or required for medical reasons: No Are you DNR?: No Advance Directives: No Advance Directives Information Provided: Yes service: No Current occupational status: employed Sexual orientation: Straight/Heterosexual Gender identity: Female Cognitive needs: No Hearing needs: No Vision needs: Yes Meds Allergies Allergy/AdvReac Type Severity Reaction Status Date / Time aspartame Allergy Severe mouth Verified 08/27/24 10:04 feels on fire, throat swells codeine [CODEINE] Allergy Mild NAUSEA & Verified 08/27/24 10:04 VOMITING Codeine Sulfate Allergy Mild nausea, Uncoded 07/15/24 07:52 vomiting Assessment and Plan Assessment Anesthesia Assessment: Chart Reviewed Documented by User: Aminah Kyle MD 08/27/24 10:48 PMFSH Past Medical History Medical History (Updated 08/27/24 @ 10:03 by Arpita Easton RN) Breast cyst High cholesterol Hypertension Osteopenia Family History Family History Mother Lung cancer Father Prostate cancer Hypertension Other Substance use disorder Family history of problems with anesthesia: No Surgical History Surgical History (Updated 08/27/24 @ 10:03 by Arpita Easton RN) H/O colonoscopy History of bunionectomy H/O ovarian cystectomy History of Problems with Anesthesia: No Social History Social History Housing: House Alcohol intake: current Alcohol intake frequency: a few times a week Patient Tobacco Use Status: Never used Tobacco e-Cigarette/Vaping Use: Never Used Use of substances other than those prescribed or required for medical reasons: No Are you DNR?: No Advance Directives: No Advance Directives Information Provided: Yes service: No Current occupational status: employed Sexual orientation: Straight/Heterosexual Gender identity: Female Cognitive needs: No Hearing needs: No Vision needs: Yes Meds Allergies Allergy/AdvReac Type Severity Reaction Status Date / Time aspartame Allergy Severe mouth Verified 08/27/24 10:04 feels on fire, throat swells codeine [CODEINE] Allergy Mild NAUSEA & Verified 08/27/24 10:04 VOMITING Codeine Sulfate Allergy Mild nausea, Uncoded 07/15/24 07:52 vomiting Exam Airway Mallampati Class: II TM Dist: >3cm Neck ROM: Full Heart: rrr Lungs: cta Assessment and Plan Assessment Anesthesia Assessment: Anesthesia Plan Discussed Final Anesthetic Review Family History of Problems with Anesthesia: No History of Problems with Anesthesia: No NPO: Yes ASA Class: II Final Preanesthetic Review: No Changes in Pt Med Stat, Meds/Allgs Chart Reviewed and Consent Obtained/Reviewed Patient Risk: Low Procedure Risk: Low Anesthetic Plan Anesthetic Plan: MAC: Disposition: Standard PACU
[2024-08-27 10:04] VITALS: BMI 30.6
--- NOTE | 2024-08-27 10:18 | MHC.SHP ---
Pre-Procedural Eval Section A - 24 Hr Update-Section A only Date of Service: 08/27/24 The patient is an INPATIENT: No The patient has been examined within 24 hours of the surgical procedure. The History & Physical has been completed within 30 days and I have reviewed it.: No Section B - Complete if H&P > 30 days Chief Complaint: Colon cancer screening Relevant Family History (Specify if Yes): No Relevant Social History: None Present Medications: see Short Stay Collaborative assessment Medical History: Significant History (Breast cyst High cholesterol Hypertension Osteopenia) History of Previous Operations: Relevant previous surgery/procedure and date(s) (History of bunionectomy H/O ovarian cystectomy, history of colonoscopy) Allergies: Allergies Allergy/AdvReac Type Severity Reaction Status Date / Time aspartame Allergy Severe mouth Verified 08/27/24 10:04 feels on fire, throat swells codeine [CODEINE] Allergy Mild NAUSEA & Verified 08/27/24 10:04 VOMITING Codeine Sulfate Allergy Mild nausea, Uncoded 07/15/24 07:52 vomiting Review of Systems Sugical H&P ROS: Negative: Constitution, Cardiovascular, Respiratory and Gastrointestinal Exam Surgical H&P Exam: Normal: Heart, Normal: Lungs, Normal: Extremities and Normal: Abdomen Plan Diagnosis/Plan: Unchanged I have reviewed the history and physical and performed a pertinent physical examination on my patient. No changes have occurred unless specified. Time Spent With Patient Time: Total time managing care of this patient today ____ minutes.
[2024-08-27 10:31] VITALS: BP 133/87; PULSE 83; RESP 15; TEMP 36.4; O2SAT 97
[2024-08-27] MEDS: Lactated Ringers 1,000 ML 100 ML IVCONT (10:32)
--- NOTE | 2024-08-27 11:26 | P.OPN-COLO_ITS ---
Colonoscopy Operative Note Operative Note Date of Service: 08/27/24 Narrative: COLONOSCOPY TILL CECUM WITH BIOPSIES AND SNARE POLYPECTOMY Pre-op diagnosis: Colon cancer screening (2nd colonoscopy). Post-op diagnosis:? Colon polyps, Diverticulosis Endoscopist:? Zachary Zapata MD Anesthesia:?MAC Consent: Indications for the procedure and potential complications of bleeding, perforation, reaction to medications and missed diagnosis were discussed with the patient and informed consent was obtained. Instrument: Olympus PCF H 190 L variable stiffness pediatric colonoscope Monitoring: Vital signs and clinical assessment, intermittent blood pressure monitoring, continuous EKG monitoring, Pulse oximetry and Carbon Dioxide monitoring were done throughout the procedure. Please see anesthesia flowsheet. Colon withdrawl time was 17 minutes. Procedure: The patient was placed in the left lateral decubitis position and pre-procedure medications were administered. After a digital rectal examination of the ano-rectum, the video colonoscope was inserted into the rectum and advanced through the colon to the cecum. The colonoscope was slowly withdrawn in a retrograde panoramic fashion and the colon mucosa was carefully examined including a retroflexed view of the rectum. Findings and interventions are described below. Procedure Difficulty: without difficulty Findings: Terminal Ileum: Not evaluated Cecum: Normal Ascending Colon: A 2-3 mm diminutive appearing polyp at the hepatic flexure - removed with a cold biopsy Transverse Colon: Normal Descending Colon: Moderate diverticulosis Sigmoid Colon: Moderate diverticulosis Rectum: A 10-12 mm sessile polyp on a small pedicle at 10-12 cms - removed with a hot snare Ano-rectum: Normal Colon preparation: Good after some irrigation. [place] Bowel Preparation Scale Right colon; 2 Transverse colon: 2 Left colon; 2 (0 = Unprepared colon segment with mucosa not seen due to solid stool that cannot be cleared. 1 = Portion of mucosa of the colon segment seen, but other areas of the colon segment not well seen due to staining, residual stool and/or opaque liquid. 2 = Minor amount of residual staining, small fragments of stool and/or opaque liquid, but mucosa of colon segment seen well. 3 = Entire mucosa of colon segment seen well with no residual staining, small fragments of stool or opaque liquid) Impression and Post Procedure Diagnosis: Colonoscopy Findings: One small and one medium sized polyps were removed Moderate diverticulosis seen in the left colon Plan: I will send a letter with biopsy results Repeat Colonoscopy in 3-5 years if polyps are adenomatous and 10 year if polyps are hyperplastic. Above findings were reviewed with the patient and relevant handouts were given and the discharge area.
[2024-08-27 11:27] VITALS: BP 121/77; PULSE 80; RESP 16; TEMP 36.2; O2SAT 98
[2024-08-27 11:42] VITALS: BP 128/83; PULSE 81; RESP 16; O2SAT 99
[2024-08-27 11:57] VITALS: BP 139/85; PULSE 76; RESP 16; TEMP 36.2; O2SAT 99
== END 2024-08-27 12:37 | disposition home or self-care (01) ==
PROVIDERS: PCP Nurse Practitioner Family; Visit Provider Internal Medicine Gastroenterology
PROC: 0DJD8ZZ Inspection of Lower Intestinal Tract, Via Natural or Artificial Opening Endoscopic (ICD-10-PCS; CPT 45378; principal; 2024-08-27 11:50)
DX: Z12.11 Encounter for screening for malignant neoplasm of colon (principal); D12.8 Benign neoplasm of rectum; K63.5 Polyp of colon; K57.30 Diverticulosis of large intestine without perforation or abscess without bleeding; I10 Essential (primary) hypertension; E78.00 Pure hypercholesterolemia, unspecified; M85.80 Other specified disorders of bone density and structure, unspecified site; Z88.5 Allergy status to narcotic agent; Z88.8 Allergy status to other drugs, medicaments and biological substances; Z79.899 Other long term (current) drug therapy
CPT/HCPCS: 45385; 45380; 88305; J2003; J2704

== ENCOUNTER → 2024-08-27 09:52 | Outpatient (BNV) | payer BC, SELFPAY | PROVIDERS: PCP Nurse Practitioner Family; Visit Provider Internal Medicine Gastroenterology | DX: Z12.11 Encounter for screening for malignant neoplasm of colon (principal); D12.8 Benign neoplasm of rectum; K63.5 Polyp of colon; K57.90 Diverticulosis of intestine, part unspecified, without perforation or abscess without bleeding | CPT/HCPCS: 45380; 45385 ==

== ENCOUNTER 2024-11-04 09:11 | Outpatient (AMB) | payer BC, SELFPAY ==
--- NOTE | 2024-11-04 09:16 | AM.OFFWIN_ITS ---
Intake Vital Signs 11/04/24 09:22 Weight 176 lb BP 140/90 H Blood Pressure Location Rt brachial Position Sitting Pulse 95 Pulse Source Pulse Oximeter Temp 97.5 F Temp Source Temporal Artery Scan Pulse Oximetry (%) 97 Oxygen Delivery Method Room Air Intake Visit Reasons: EP swollen lymph nodes, sore throat Intake Note: Patient here for swollen lymph nodes and no voice which started Friday. Patient Tobacco Use Status: Never used Tobacco Allergies aspartame Allergy (Severe, Verified 11/04/24 09:21) mouth feels on fire, throat swells codeine [CODEINE] Allergy (Mild, Verified 11/04/24 09:21) NAUSEA & VOMITING Codeine Sulfate Allergy (Mild, Uncoded 11/04/24 09:21) nausea, vomiting Do you need a note to return to daycare/school/sports/work: No HPI EP swollen lymph nodes, sore throat HPI Details This note is constructed using voice recognition software. While every effort has been made to ensure accuracy, curtain stretcher assembler errors may have been included. The patient is a 64 year old female who presents to the clinic today with hoarse voice, sore throat since Friday. She denies fever, chills, cough, shortness of breath, body aches. She does report that she checked a COVID test yesterday and it was negative. She reports that typically she gets this this time of year every year, and it progresses to upper respiratory cough, congestion, which she would like to prevent. She is an allergy person, and follows an transportation maintenance specialist with shots routinely. [facility] Medical History (Updated 08/27/24 @ 10:03 by Arpita Easton RN) Breast cyst High cholesterol Hypertension Osteopenia Surgical History (Updated 08/27/24 @ 10:03 by Arpita Easton RN) H/O colonoscopy History of bunionectomy H/O ovarian cystectomy Family History Mother Lung cancer Father Prostate cancer Hypertension Other Substance use disorder Social History Housing: House Alcohol intake: current Alcohol intake frequency: a few times a week Patient Tobacco Use Status: Never used Tobacco e-Cigarette/Vaping Use: Never Used service: No Current occupational status: employed Sexual orientation: Straight/Heterosexual Gender identity: Female Cognitive needs: No Hearing needs: No Vision needs: Yes Review of Systems Const All systems reviewed & are unremarkable except as noted in HPI and below Physical Exam Vital Signs: Last Vital Signs Temp 97.5 F 11/04/24 09:22 Pulse 95 11/04/24 09:22 BP 140/90 H 11/04/24 09:22 Pulse Ox 97 11/04/24 09:22 Oxygen Delivery Method Room Air 11/04/24 09:22 Const General: cooperative, healthy appearing, comfortable and no acute distress Orientation/consciousness: patient oriented x3 Limitations: no limitations HEENT Head: Yes normal to inspection Ears: hearing grossly normal bilaterally, external ears normal and TM's normal bilaterally General nose exam: Normal external nose present, Normal nares present and No nasal discharge present Face and sinus: Yes normal facial exam and Yes sinuses nontender Mouth: Normal oral and palatal mucosa present and moist mucous membranes Throat: Yes tonsils normal, Yes uvula midline and Yes posterior oropharynx abnormal (Erythema) Eyes General: appearance normal, both eyes and all related structures Neck Neck: Yes normal visual inspection Resp Other: Speaking with a hoarse voice Effort & Inspection: normal respiratory effort, able to speak in complete sentences, Actively coughing, no respiratory distress, not tachypneic, no tripod positioning and no use of accessory muscles Auscultation: clear to auscultation bilaterally Cardio Jugular venous distension: no JVD Rate: regular rate Rhythm: regular rhythm Heart sounds: S1 normal heart sound present, S2 normal heart sound present, no click, no gallops, no murmurs and no rubs Skin General skin exam: no rashes or lesions noted, elasticity normal and turgor normal Neuro General: patient oriented x3 Extrem General: Yes normal to inspection and Yes no clubbing, cyanosis or edema Assessment & Plan Assessment & Plan (1) Laryngitis: Code(s): J04.0 - Acute laryngitis Plan: Rapid strep test offered, declined by patient, exam does not reflect obvious strep. Viral swab offered to rule out Covid, Influenza, and RSV based on symptoms, however patient declined. Advised mask wearing while symptomatic and quarantine per current CDC guidelines. Reviewed at home support methods including hydration, humidification, vix vapor rub, sinus rinse, and otc treatment options. History and physical examination does support viral etiology. Prednisone burst sent for anti-inflammatory effects. Advised follow up with worsening symptoms such as dyspnea at rest, which would require emergent evaluation. Plan See above for full details and plan. Medications: New prednisone 40 mg (2 x 20 mg) PO DAILY 3 days 6 tabs 0RF Coding Level of Care Code Est Pt Level 3 (48806) Diagnoses Laryngitis J04.0
--- OUTSIDE RECORDS SUMMARY | 2024-11-04 09:19 | XMS_ITS | Data Portability ---
Author Organization [facility], [address] Address [address] [place] [address] Care Team Providers Care [employer] Team Member Name Role Phone [facility] Primary Care Provider Assessment No assessment recorded. Plan of Treatment Reminders Order Date Submit Date Provider Last Modified By Organization Details Last Modified Time Details Appointments None recorded. Lab rapid SARS CoV 2 Ag, QL IA, respiratory specimen [address] [place] [address], [address] [place] [address], [id number], 3 16:12:30 rapid SARS CoV 2 Ag, QL IA, respiratory specimen [address] [place] [address], [address] [place] [address], [phone], 3 20:26:21 Referral None recorded. Procedures None recorded. Surgeries None recorded. Imaging None recorded. Medication Orders Paxlovid 300 mg (150 mg x 2)-100 mg tablets in a dose pack 2022 023 [id number], [address], [place], [phone], 3 16:23:26 prednisone 20 mg tablet 2022 023 [id number] [address], [place], [id number], 3 16:23:28 benzonatate 100 mg capsule 2022 023 [id number], [address], [place], [id number], 16:23:27 Patient TargetsNo targets recorded. Patient Instructions Encounter Date Encounter Id Patient Instructions Last Modified By Organization Details Last Modified Time 12/08/2022 [id number] coronavirus (covid-19): care instructions leyda Not available 12/08/2022 16:12:30 Sinusitis is an infection of the lining of the sinus cavities in your head. Sinusitis often follows a cold. It causes pain and pressure in your head and face. In most cases, sinusitis gets better on its own in 1 to 2 weeks. But some mild symptoms may last for several weeks. Sometimes antibiotics are needed. if you are having problems. It's also a good idea to know your test results and keep a list of the medicines you take. How can you care for yourself at home? Take an lcjo-ios-xhihjti pain medicine. Avoid Ibuprofen, Aleve and Aspirin if . If the doctor prescribed antibiotics, take them as directed. Do not stop taking them just because you feel better. You need to take the full course of antibiotics. Be careful when taking uagv-pee-gkxxjdp cold or influenza (flu) medicines and Tylenol at the same time. Many of these medicines have acetaminophen, which is Tylenol. Read the labels to make sure that you are not taking more than the recommended dose. Too much acetaminophen (Tylenol) can be harmful. Breathe warm, moist air from a steamy shower, a hot bath, or a sink filled with hot water. Avoid cold, dry air. Using a humidifier in your home may help. Follow the directions for cleaning the machine. Use saline (saltwater) nasal washes. This can help keep your nasal passages open and wash out mucus and bacteria. You can buy saline nose drops at a grocery store or drugstore. Or you can make your own at home by adding 1 teaspoon (5 millilitres) of salt and 1 teaspoon (5 millilitres) of baking soda to 2 cups (500 mL) of distilled water. If you make your own, fill a bulb syringe with the solution, insert the tip into your nostril, and squeeze gently. Blow your nose. Put a hot, wet towel or a warm gel pack on your face 3 or 4 times a day for 5 to 10 minutes each time. Try a decongestant nasal spray like oxymetazoline (Drixoral). Do not use it for more than 3 days in a row. Using it for more than 3 days can make your congestion worse. If you test positive for COVID-19, stay home for at least 5 days and isolate from others in your home. ???You are likely most infectious during these first 5 days. ???Wear a high-quality mask if you must be around others at home and in public. Do not go places where you are unable to wear a mask. For travel guidance, see CDC? s Travel webpage. Do not travel. Stay home and separate from others as much as possible. Use a separate bathroom, if possible. Take steps to improve ventilation at home, if possible. Don? t share personal household items, like cups, towels, and utensils. Monitor your symptoms. If you have an emergency warning sign (like trouble breathing), seek emergency medical care immediately. If you had symptoms and: Your symptoms are improving You may end isolation after day 5 if: ???You are fever-free for 24 hours (without the use of fever-reducing medication). Your symptoms are not improving Continue to isolate until: ???You are fever-free for 24 hours (without the use of fever-reducing medication). Your symptoms are improving. ???Regardless of when you end isolation Until at least day 11: Avoid being around people who are more likely to get very sick from COVID-19. Remember to wear a high-quality mask when indoors around others at home and in public. Do not go places where you are unable to wear a mask until you are able to discontinue masking (see below). For travel guidance, see CDC? s Travel webpage. Not available 12/08/2022 16:22:47 If you test positive for COVID-19, stay home for at least 5 days and isolate from others in your home. You are likely most infectious during these first 5 days. Wear a high-quality mask if you must be around others at home and in public. Do not go places where you are unable to wear a mask. For travel guidance, see CDC? s Travel webpage. Do not travel. Stay home and separate from others as much as possible. Use a separate bathroom, if possible. Take steps to improve ventilation at home, if possible. Don? t share personal household items, like cups, towels, and utensils. Monitor your symptoms. If you have an emergency warning sign (like trouble breathing), seek emergency medical care immediately. If you had symptoms and: Your symptoms are improving You may end isolation after day 5 if: You are fever-free for 24 hours (without the use of fever-reducing medication). Your symptoms are not improving Continue to isolate until: You are fever-free for 24 hours (without the use of fever-reducing medication). Your symptoms are improving. Regardless of when you end isolation Until at least day 11: Avoid being around people who are more likely to get very sick from COVID-19. Remember to wear a high-quality mask when indoors around others at home and in public. Do not go places where you are unable to wear a mask until you are able to discontinue masking (see below). For travel guidance, see CDC? s Travel webpage. Not available 12/08/2022 15:57:19 12/30/2022 [id number] COVID test was negative - OK to travel. [email or web address] Not available 12/30/2022 20:26:13 Reason for Referral None Reported. Results Created Date Observation Date Name Description Value Unit Range Abnormal Flag Note LastModifiedBy Organization Detail LastModifiedTime 12/08/1912/08/2022 rapid SARS CoV 2 Ag, QL IA, respi rator y speci men Unknown Analyte Normal =Negat epi Not Available [facility] [address] [place], [address], 12/08/2022 15:25:44 12/08/1912/08/2022 rapid SARS CoV 2 Ag, QL IA, respi rator y speci men Unknown Analyte positi ve Not Available [address] [place], [address], 12/08/2022 15:25:44 12/30/19 23 12/30/2022 rapid SARS CoV 2 Ag, QL IA, respi rator y speci men Unknown Analyte negati ve Not Available [address], [place], [address], 12/30/2022 19:20:14 Result Notes None recorded. Problems Name Problem SNOMED Code Status Onset Date Resolution Date Notes Provider Name and Address Organization Details Recorded Time Hypertensive disorder 46222948 Active 2022 BEBO DEPINTO null, [place] - [facility] 3 15:31:31 Hypercholestero lemia 25692108 Active 2022 BEBO DEPINTO null, PA - [facility] 3 15:31:35 Problem Notes None recorded. Procedures Surgical History Date Name Laterality Status Provider Name and Address Organization Details Recorded Time excision of bunion completed BEBO DEPINTO PA - [facility] 12/08/2022 15:32:37 excision of cyst of ovary completed BEBO DEPINTO PA - [facility] 12/08/2022 15:32:47 procedure on duct completed BEBO DEPINTO PA - [facility] 12/08/2022 15:33:00 Imaging Results None recorded. Procedure Notes None recorded. Medical Equipment None Reported. Allergies Allergen ID Allergen Name Allergen Category Reaction Reaction Severity Criticality Documentation Date Start Date Code Code System Note Provider Name and Address Organization Details Recorded Time 754991 codeine medicatio n tachycard ia Not available Not available 12/08/2022 2670 RxNorm BEBO DEPINTO null, PA - [facility] 3 15:30:58 Medications Name Sig Start Date Stop Date Status Note LastModified by Organization Details LastModified Time atorvastatin 20 mg tablet TAKE 1 TABLET BY MOUTH DAILY active Not Available Not Available No t Available prednisone 20 mg tablet TAKE 2 TABLETS BY MOUTH EVERY DAY IN THE MORNING FOR 3 DAYS active Not Available Not Available No t Available benzonatate 100 mg capsule TAKE 1 CAPSULE BY MOUTH THREE TIMES DAILY FOR 7 DAYS NEEDED active Not Available Not Available No t Available losartan 25 mg tablet TAKE 1 TABLET BY MOUTH DAILY active Not Available Not Available No t Available ID NOW COVID-19 Test Kit TEST DIRECTED TODAY active Not Available Not Available No t Available Paxlovid 300 mg (150 mg x 2)-100 mg tablets in a dose pack USE DIRECTED ON PACKAGE active Not Available Not Available No t Available Vitals Date Recorded Body height Body mass index (BMI) Body weight Body temperature Respiratory rate Oxygen saturation Oxygen saturation in Arterial blood by Pulse oximetry Heart rate Systolic blood pressure Diastolic blood pressure Provider Name and Address Organization Details Last Updated DateTime 3 162.56 cm 29.5 kg/m2 59370.8 9 g 97.5 [degF] 18 /min 98 % 98 % 92 /min 125 mm[Hg] 85 mm[Hg] BEBO DOMINGO [facility] 3 15:34:31 Date Recorded Body height Body mass index (BMI) Body weight Heart rate Oxygen saturation Oxygen saturation in Arterial blood by Pulse oximetry Respiratory rate Body temperature Systolic blood pressure Diastolic blood pressure Provider Name and Address Organization Details Last Updated DateTime 3 162.56 cm 29.9 kg/m2 56633.0 7 g 94 /min 99 % 99 % 16 /min 98.2 [degF] 153 mm[Hg] 83 mm[Hg] NAVA SWANN [place] [facility] 3 19:18:20 Social History Question Answer Notes LastModified by Organizat ion Details LastModified Time Tobacco Smoking Status Never Smoker BEBO mccauley PA - [facility] 12/08/2022 15:31:45 What Is Your Level Of Alcohol Consumption? Occasional Information not available 12/08/2022 How Many Times Per Week Do You Consume Alcohol? <1 Time Per Week Information not available 12/08/2022 Do You Use Any Illicit Or Recreational Drugs? No Information not available 12/08/2022 Have You Recently Traveled Abroad? No Information not available 12/08/2022 Do You Or Have You Ever Used Any Other Forms Of Tobacco Or Nicotine? No Information not available 12/08/2022 Sex: Unknown Functional Status None recorded. Mental Status None recorded. Family History Relationship Description Onset Age of this Age Resolved Age Notes LastModified by Organization Details LastModified Time Father No current problems or disability Not available 12/08 15:31:37 Mother No current problems or disability Not available 12/08 15:31:37 Medical History No medical history recorded. Gynecological HistoryNo gynecological history recorded. Obstetrics History GPAL:G 0 P 0 0 0 0 Immunizations Vaccine Type Date Status Note Provider Nam e and Address Organization Details Recorded Time COVID-19, mRNA, LNP-S, PF, 100 mcg/0.5mL dose or 50 mcg/0.25mL dose 1 completed BEBO DEPINTO null, PA - [facility] 12/08/2022 15:30:20 Influenza, split virus, quadrivalent, preservative 9 completed BEBO DEPINTO null, PA - [facility] 12/08/2022 15:30:20 Influenza, split virus, quadrivalent, PF 8 completed BEBO DEPINTO null, PA - [facility] 12/08/2022 15:30:20 COVID-19, mRNA, LNP-S, PF, 100 mcg/0.5mL dose or 50 mcg/0.25mL dose 1 completed BEBO DEPINTO null, PA - [facility] 12/08/2022 15:30:20 zoster recombinant 8 completed BEBO DEPINTO null, PA - [facility] 12/08/2022 15:30:20 Influenza, split virus, quadrivalent, preservative 8 completed BEBO DEPINTO null, PA - [facility] 12/08/2022 15:30:20 COVID-19, mRNA, LNP-S, PF, 100 mcg/0.5mL dose or 50 mcg/0.25mL dose 1 completed BEBO DEPINTO null, PA - [facility] 12/08/2022 15:30:20 Influenza, split virus, quadrivalent, PF 0 completed BEBO DEPINTO null, PA - [facility] 12/08/2022 15:30:20 Influenza, split virus, trivalent, preservative 4 completed BEBO DEPINTO null, PA - [facility] 12/08/2022 15:30:20 Past Encounters Encounter ID Performer Location Encounter Start Date Encounter Closed Date Diagnosis/Indication Diagnosis SNOMED-CT Code Diagnosis ICD10 Code [id number] [address] [facility] [place] [address] 12/12/2019 09:57:36 12/12/2019 11:15:25 [id number] [address] [facility] [place] [address] 12/19/2018 08:29:36 12/19/2018 09:17:23 [id number] [address] [facility] [place] [address] 11/23/2016 10:20:49 11/23/2016 11:39:15 [id number] [address] [place] [address] 01/18/2016 09:40:36 01/18/2016 11:13:19 [id number] [address] [place] [address] 03/22/2021 08:05:06 03/22/2021 08:56:04 [id number] [address] [place] [address] 04/12/2017 11:14:23 04/12/2017 12:21:13 [id number] [address] [place] [address] 01/28/2017 17:03:46 01/28/2017 18:28:26 [id number] [address] [place] [address] 06/09/2017 14:27:35 06/09/2017 14:47:12 [id number] Moris Ascencio NP [address] [place] [address] 12/08/2022 14:44:59 12/08/2022 16:36:36 Exposure to SARS-CoV-2 679518479 Z20.822 COVID-19 351551073 U07.1 Acute sinusitis 02670745 J01.90 [id number] [facility]IN [address] [address] 12/30/2022 16:43:51 12/30/2022 20:28:15 Exposure to SARS-CoV-2 592853817 Z20.822 Health Concerns Section Related Observation LastModified by Organization Detai ls LastModified Time None Recorded Concern Status LastModified by Organization Details LastModified Time None Recorded Advance Directives Directive None Recorded Payers Encounter Date Sequence Insurance Name Policy Number Policy [place] Covered Member ID [place] Member ID Guarantor Name 03/22/2021 1 [place] [facility] [id number] Ana Rosa L Lehouiller [id number] Ana Rosa L Lehouiller 12/08/2022 1 [place] [facility] [place] [id number] Ana Rosa L Lehouiller [id number] Ana Rosa L Lehouiller 12/30/2022 1 [place] [facility] [place] [id number] Ana Rosa L Lehouiller [id number] Ana Rosa L Lehouiller Notes Date Note Type Note Provider Name and Address Organization Details Recorded Time 12/08/2022 text/html CongestionReport ed bypatient.Notes:nasal congestion with post nasal drip x 3 days. denies nay fever or fever with chills. no SOB or respiratory distress. Moris Ascencio NP [address] [place], [address], [place] [facility] 12/08/2022 16:23:23 12/30/2022 text/html COVID-19 SymptomsReported bypatient.COVID-19 Signs and Symptomscough improving/resolved; fever improving/resolved; sore throat resolvedNotes:The patient reports that she needs a repeat COVID test so she can go to on a Cruise. No current symptoms. NUPUR MARTIN [address] [place], [address], [place] - [facility] 12/30/2022 22:30:15 OBGyn Episode No OBEpisode recorded.
[2024-11-04 09:22] VITALS: BP 140/90; PULSE 95; TEMP 36.4; O2SAT 97
== END 2024-11-04 09:55 | disposition home or self-care (01) ==
PROVIDERS: PCP Nurse Practitioner Family; Visit Provider Registered Nurse
DX: J04.0 Acute laryngitis (principal)

== ENCOUNTER 2024-12-02 07:56 | Outpatient (AMB) | payer BC, SELFPAY ==
--- NOTE | 2024-12-02 07:57 | MHC.OFFVIS ---
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 She is doing well with no gynecology teacher concerns. Currently not sexually active. Denies any vaginal dryness or irritation. STI testing offered; she declines. Attempting to eat a healthy diet (Weight-watchers) with calcium and vitamin D and stays active with exercise. Last pap smear; 2023. Last mammogram; 2023. Colonoscopy is UTD. Denies any family history of breast, ovarian or colon cancer. [facility] Medical History Breast cyst High cholesterol Hypertension Osteopenia Surgical History H/O colonoscopy History of bunionectomy H/O ovarian cystectomy Family History Mother Lung cancer Father Prostate cancer Hypertension Other Substance use disorder Social History Housing: House Alcohol intake: current Alcohol intake frequency: a few times a week Patient Tobacco Use Status: Never used Tobacco e-Cigarette/Vaping Use: Never Used service: No Current occupational status: employed Sexual orientation: Straight/Heterosexual Gender identity: Female Cognitive needs: No Hearing needs: No Vision needs: Yes Female Reproductive History Menstrual Total pregnancies: 2 Full term: 1 Number of Living Children: 1 Date of last pap smear: 11/26/23 (neg pap and hpv) Date of Mammogram: 07/19/24 (Birad 1) Date of last Bone Density Screenin07/18/23 Other: colonoscopy 08/27/24 Review of Systems Const All systems reviewed & are unremarkable except as noted in HPI and below Reports as per HPI Eyes Reports no additional complaints ENT Reports no additional complaints Card Reports no additional complaints Resp Reports no additional complaints GI Reports as per HPI and Reports no additional complaints Reports as per HPI Musc Reports no additional complaints Skin/Breast Reports as per HPI Neuro Reports no additional complaints Psych Reports no additional complaints Endo Reports no additional complaints Vivek/Lymph Reports no additional complaints Aller/Immun Reports no additional complaints Physical Exam Vital Signs: Last Vital Signs BP 120/80 12/02/24 07:59 BMI result Body Mass Index 30.9 Const General: cooperative, healthy appearing, no acute distress, well developed and alert Orientation/consciousness: patient oriented x3 HEENT Head: Yes normal to inspection Eyes General: appearance normal, both eyes and all related structures Neck Neck: Yes normal visual inspection Thyroid: Thyroid normal Chest Chest palpation & inspection: normal inspection of the chest and other (no puckering, dimpling, peau de orange, retraction, discharge, masses) Breast/axilla inspection: normal inspection of the breasts Breast/axilla palpation: normal palpation of the breasts Resp Effort & Inspection: normal respiratory effort GI Inspection: Yes normal to inspection Palpation (GI): Soft to palpation Rectal Exam - Female: deferred General: Yes bladder normal to palpation External Female Exam: normal external appearance and normal appearance of the urethra Speculum Exam - Vagina: normal appearance of the vagina, normal palpation, normal vaginal discharge and vagina atrophic Speculum Exam - Cervix: normal appearance of the cervix and normal palpation Bimanual exam- vagina & uterus: normal bimanual exam, normal palpation, uterine size normal, bladder normal to palpation, normal palpation and non-tender Bimanual Exam- Adnexa, other: no masses Skin General skin exam: no rashes or lesions noted Rashes: no rashes Neuro General: patient oriented x3 Cognition (Neuro): normal cognition Extrem General: Yes normal to inspection Psych Attitude: cooperative Thought process: Normal thought process present Assessment & Plan Assessment & Plan (1) Encounter for well woman exam with routine gynecological exam: Code(s): Z01.419 - Encounter for gynecological examination (general) (routine) without abnormal findings Category: Medical Plan Discussed: Current recommendations for pap smears per ASCCP guidelines. Breast awareness, periodic self breast exams and yearly mammogram. Maintain a healthy lifestyle, well balanced diet including Calcium 1,200 mg and Vitamin D 600 IU daily, and routine exercise. Contact the office with any postmenopausal bleeding. Patient verbalizes understanding and agrees to the plan of care. She was given opportunity to ask questions and all questions were answered to the best of my ability. RTO in 1 year for annual gynecology teacher exam. This note is constructed using voice recognition software. While every effort has been made to ensure accuracy, geothermal powerplant mechanic errors may have been included. Coding Level of Care Code Est Pt Prev Care 40-64y(54447) Diagnoses Encounter for well woman exam with routine gynecological exam Z01.419
--- OUTSIDE RECORDS SUMMARY | 2024-12-02 07:57 | XMS_ITS | Data Portability ---
Author Organization NUP[facility] Barnett [facility], [address] Address [address] [place] [address] Care Team Providers Care Alliance Manager Name Role Phone [facility] Primary Care Provider Assessment No assessment recorded. Plan of Treatment Reminders Order Date Submit Date Provider Last Modified By Organization Details Last Modified Time Details Appointments None recorded. Lab rapid SARS CoV 2 Ag, QL IA, respiratory specimen [id number] [place] [address], [address] [place] [address], [phone], 3 20:26:21 rapid SARS CoV 2 Ag, QL IA, respiratory specimen [address] [place] [address], [address] [place] [address], [phone], 3 16:12:30 Referral None recorded. Procedures None recorded. Surgeries None recorded. Imaging None recorded. Medication Orders Paxlovid 300 mg (150 mg x 2)-100 mg tablets in a dose pack 2022 023 [id number], [address] [place], [place], [id number], 3 16:23:26 prednisone 20 mg tablet 2022 023 [facility], [address] [place], [place], [phone], 3 16:23:28 benzonatate 100 mg capsule 2022 023 [facility]85, [address], [place], [phone], 16:23:27 Patient TargetsNo targets recorded. Patient Instructions Encounter Date Encounter Id Patient Instructions Last Modified By Organization Details Last Modified Time 12/08/2022 [id number] coronavirus (covid-19): care instructions leyda Not available [...] care for yourself at home? Take an askd-uka-bmnzrsm pain medicine. Avoid Ibuprofen, Aleve and Aspirin if . If the doctor prescribed antibiotics, take them as directed. Do not stop taking them just because you feel better. You need to take the full course of antibiotics. Be careful when taking girv-kvc-ihcgroz cold or influenza (flu) medicines and Tylenol [...] Travel webpage. Not available 12/08/2022 15:57:19 12/30/2022 [id number] COVID test was negative - OK to travel. [email or web address] Not available 12/30/2022 20:26:13 Reason for Referral None Reported. Results Created Date Observation Date Name Description Value Unit Range Abnormal Flag Note LastModifiedBy Organization Detail LastModifiedTime 12/08/1912/08/2022 rapid SARS CoV 2 Ag, QL IA, respi rator y speci men Unknown Analyte Normal =Negat epi Not Available [facility] [address] [place], [address], 12/08/2022 15:25:44 12/08/1912/08/2022 rapid SARS CoV 2 Ag, QL IA, respi rator y speci men Unknown Analyte positi ve Not Available [facility] [address] [place], [address], 12/08/2022 15:25:44 12/30/19 23 12/30/2022 rapid SARS CoV 2 Ag, QL IA, respi rator y speci men Unknown Analyte negati ve Not Available [address], [place], [address], 12/30/2022 19:20:14 Result Notes None recorded. Problems Name Problem SNOMED Code Status Onset Date Resolution Date Notes Provider Name and Address Organization Details Recorded Time Hypertensive disorder 54230077 Active 2022 BEBO DEPINTO null, [place] - [facility] 3 15:31:31 Hypercholestero lemia 12288843 Active 2022 BEBO DEPINTO null, PA - [...] Name and Address Organization Details Recorded Time 134797 codeine medicatio n tachycard ia Not available [...] Updated DateTime 3 162.56 cm 29.5 kg/m2 89954.8 9 g 97.5 [degF] 18 /min 98 % 98 % 92 /min 125 mm[Hg] 85 mm[Hg] BEBO DOMINGO [facility] 3 15:34:31 Date Recorded Body height Body mass index (BMI) Body weight Heart rate Oxygen saturation Oxygen saturation in Arterial blood by Pulse oximetry Respiratory rate Body temperature Systolic blood pressure Diastolic blood pressure Provider Name and Address Organization Details Last Updated DateTime 3 162.56 cm 29.9 kg/m2 46489.0 7 g 94 /min 99 % 99 % 16 /min 98.2 [degF] 153 mm[Hg] 83 mm[Hg] NAVA SWANN [place] [facility] 3 19:18:20 Social History Question Answer Notes LastModified by Organizat ion Details LastModified Time Tobacco Smoking Status Never Smoker BEBO mccauley [place] - [facility] 12/08/2022 15:31:45 What Is Your Level [...] Diagnosis/Indication Diagnosis SNOMED-CT Code Diagnosis ICD10 Code Diagnosis Note [id number] [address] [facility] [facility] [facility] J[place]ES [place] [address] 12/12/2019 09:57:36 12/12/2019 11:15:25 [id number] [address] [facility] [address] 12/19/2018 08:29:36 12/19/2018 09:17:23 [id number] [address] [facility] [place] [address] 11/23/2016 10:20:49 11/23/2016 11:39:15 [id number] [address] [facility] [place] [address] 01/18/2016 09:40:36 01/18/2016 11:13:19 [id number] [address] [facility] [place] [address] 03/22/2021 08:05:06 03/22/2021 08:56:04 [id number] [address] [facility] [place] [address] 04/12/2017 11:14:23 04/12/2017 12:21:13 [id number] [address] [facility] [place] [address] 01/28/2017 17:03:46 01/28/2017 18:28:26 [id number] [address] [facility] [place] [address] 06/09/2017 14:27:35 06/09/2017 14:47:12 [id number] Moris Ascencio NP [address] [facility] [place] [address] 12/08/2022 14:44:59 12/08/2022 16:36:36 Exposure to SARS-CoV-2 564875557 Z20.822 COVID-19 078169031 U07.1 Acute sinusitis 43028081 J01.90 [id number] [facility]UP[facility] MARTIN [address] [address] [place] [address] 12/30/2022 16:43:51 12/30/2022 20:28:15 Exposure to SARS-CoV-2 420629157 Z20.822 Health Concerns Section Related Observation LastModified by Organization Detai ls LastModified Time None Recorded Concern Status LastModified by Organization Details LastModified Time None Recorded Advance Directives Directive None Recorded Payers Encounter Date Sequence Insurance Name Policy Number Policy Hayward Covered Member ID Hayward Member ID Guarantor Name 03/22/2021 1 [place] [facility] [id number] Ana Rosa L Lehouiller [id number] Ana Rosa L Lehouiller 12/08/2022 1 [place] [facility] [place] [id number] Ana Rosa L Lehouiller [id number] Ana Rosa L Lehouiller 12/30/2022 1 [place] [facility] [place] [id number] Ana Rosa L Lehouiller [id number] Ana Rosa L Lehouiller Notes Date Note Type Note Provider Name and Address Organization Details Recorded Time 12/08/2022 text/html CongestionReport ed bypatient.Notes:nasal congestion with post nasal drip x 3 days. denies nay fever or fever with chills. no SOB or respiratory distress. Moris Ascencio NP [address] [facility] [place], [address], [place] - [facility] 12/08/2022 16:23:23 12/30/2022 text/html COVID-19 SymptomsReported bypatient.COVID-19 Signs and Symptomscough improving/resolved; fever improving/resolved; sore throat resolvedNotes:The patient reports that she needs a repeat COVID test so she can go to on a Cruise. No current symptoms. NUPUR MARTIN [address] [place], [address], [place] - [facility] 12/30/2022 22:30:15 OBGyn Episode No OBEpisode recorded.
[2024-12-02 07:59] VITALS: BP 120/80; BMI 30.9
== END 2024-12-02 08:26 | disposition home or self-care (01) ==
LOC: HO.HWS 07:56
PROVIDERS: PCP Nurse Practitioner Family; Visit Provider Advanced Practice Midwife
DX: Z01.419 Encounter for gynecological examination (general) (routine) without abnormal findings (principal)
CPT/HCPCS: 99396; 99459

== ENCOUNTER 2025-08-03 08:05 | Outpatient (REF) | payer BC, SELFPAY ==
[2025-08-03 10:26] LABS: Appearance Urine Clear; Glucose Urine UA Negative (Negative); PH 6.0 (5.0-9.0); Specific Gravity - Urine 1.020 (1.005-1.025)
[2025-08-03 10:47] LABS: MANUAL DIFF FLAG NO
[2025-08-03 10:59] LABS: Hematocrit 37.7 % (37.0-47.0); Hemoglobin 12.5 g/dl (12.0-16.0); Imm Gran Abs Auto 0.02 X10*3/uL (0.00-0.03); Imm Gran Pct Auto 0.4 % (0.0-0.4); Lymphocytes Absolute Auto 2.0 X10*3/uL (1.2-4.9); Mean Corpuscular HGB Conc 33.2 g/dl (31.0-35.0); Mean Corpuscular Hemoglobin 30.1 pg (27.0-33.0); Mean Corpuscular Volume 90.8 fL (80.0-98.0); NRBC Abs Auto 0.000 X10*3/uL (0.0-0.012); NRBC Pct Auto 0.0 /100WBC (0.0-0.2); Platelet Count 199 X10*3/uL (160-400); Red Blood Count 4.15 X10*6/uL (4.20-5.50); White Blood Count 5.4 X10*3/uL (4.8-10.8)
[2025-08-03 12:04] LABS: Alanine Aminotransferase 40 U/L (0-31); Albumin Level 4.7 g/dL (3.5-5.0); Alkaline Phosphatase 70 U/L (39-117); Anion Gap 13 (12-20); Aspartate Amino Transferase 27 U/L (5-31); Blood Urea Nitrogen 16 mg/dL (9-16); Calcium 9.1 mg/dL (8.4-10.2); Carbon Dioxide 27 mmol/L (22-29); Chloride 107 mmol/L (96-108); Cholesterol 150 mg/dL (<200); Estimated Glomerular Filt Rate 57; HDL Cholesterol 52 mg/dL (>40); Potassium 4.0 mmol/L (3.3-5.1); Sodium 143 mmol/L (135-145); Total Protein 7.0 g/dL (6.5-8.0); Triglycerides 146 mg/dL (<150)
== END 2025-08-03 08:06 | disposition home or self-care (01) ==
LOC: HO.HMGCLDS 08:05
PROVIDERS: PCP Nurse Practitioner Family; Visit Provider Nurse Practitioner Family
DX: Z00.00 Encounter for general adult medical examination without abnormal findings (principal); E55.9 Vitamin D deficiency, unspecified; M85.80 Other specified disorders of bone density and structure, unspecified site; K59.00 Constipation, unspecified
CPT/HCPCS: 36415; 80053; 80061; 81003; 82306; 84443; 85025; 96127

== ENCOUNTER 2025-08-03 08:05 | Outpatient (AMB) | payer BC, SELFPAY ==
[2025-08-03 08:06] VITALS: BP 120/80; PULSE 80; O2SAT 97; BMI 30.4
--- NOTE | 2025-08-03 08:06 | A.OFFPC_ITS ---
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 Accompanied by: Self / Same As Patient Allergies aspartame Allergy (Severe, Verified 08/03/25 08:07) mouth feels on fire, throat swells codeine (CODEINE) Allergy (Mild, Verified 08/03/25 08:07) NAUSEA & VOMITING Codeine Sulfate Allergy (Mild, Uncoded 11/04/24 09:21) nausea, vomiting Medication List - Last Reconciled 08/03/25 by SERGIO Chung- atorvastatin 20 mg PO DAILY 90 days fluticasone propionate 50 mcg/actuation (Allergy Relief (fluticasone)) 1 spray intranasal BID 30 days losartan 25 mg PO DAILY 90 days Tobacco use date assessed: 08/03/25 Dental Screening Dental Screen Date: 08/03/25 Did you have a dental visit in the last 12 months?: No Did you have a dental problem in the last 6 months where you did not have access to dental care?: No Was dental information given to patient?: Patient declined HPI PE HPI Details History of Present Illness The patient is a 64-year-old female presenting for a physical examination and preventative care. She denies experiencing any chest pain, dyspnea, abdominal pain, hematochezia, or diarrhea. However, she reports constipation and has been advised to start usi ng MiraLax as Metamucil caused bloating. The patient denies any urinary issues and plans to undergo fasting laboratory tests today. She is due for a bone density screening, and her mammogram is sched uled for the next month or the following month. She has a gynecological provider and has been informed about the necessary vaccinations, which she will receive at her pharmacy. Overall, she reports doing well. Health Maintenance - Bone density screening due - Mammogram scheduled for next month or the following month - Vaccinations to be obtained at pharmac y Social History Review of Systems - Cardiovascular: Denies chest pain - Respiratory: Denies dyspnea - Gastrointestinal: Reports constipation , denies abdominal pain, hematochezia, or diarrhea - Genitourinary: Denies urinary issues Physical Exam General: Cooperative, healthy appearing, comfortable, no acute distress and well developed Orientation: Patient oriented x3 Limitations: No limitations Head: Normal to inspection Ears: Hearing grossly normal bilaterally Nose: Normal external nose present Face and sinus: Normal facial exam Eyes: Appearance normal, both eyes and all related structures Neck: Normal visual inspection and Yes full ROM Respiratory: Normal respiratory effort and able to speak in complete sentences. Clear to auscultation bilaterally Cardiovascular: Regular rate and rhythm. Normal S1 and S2 GI: Normal to inspection. Soft to palpation and nontender, but patient reports constipation Skin: No rashes or lesions noted Neuro: Patient oriented x3 Extremities: Normal to inspection Results Plan 1. Constipation The patient reports constipation and has been advised to start using MiraLax as Metamucil caused bloating. 2. Preventative Care: Bone Density Scree dayo The patient is due for a bone density screening as part of her preventative care measures. 3. Preventative Care: Mammogram The patient's mammogram is scheduled for next month or the following month. 4. Preventative Care: Vaccinations The patient has been informed about the necessary vaccinations, which she will receive at her pharmacy. Discussion Notes Patient Instructions - Start using MiraLax for constipation a s Metamucil caused bloating. - Complete fasting laboratory tests toda y. - Schedule and attend bone density juan carlos oshea. - Attend scheduled mammogram next month or the following month. - Obtain necessary vaccinations at the [facility] Medical History Breast cyst High cholesterol Hypertension Osteopenia Surgical History H/O colonoscopy History of bunionectomy H/O ovarian cystectomy Family History Mother Lung cancer Father Prostate cancer Hypertension Other Substance use disorder Social History Housing: House Alcohol intake: current Alcohol intake frequency: a few times a week Patient Tobacco Use Status: Never used Tobacco e-Cigarette/Vaping Use: Never Used service: No Current occupational status: employed Sexual orientation: Straight/Heterosexual Gender identity: Female Cognitive needs: No Hearing needs: No Vision needs: Yes Questionnaire PHQ-9 Over the last 2 weeks, how often have you been bothered by any of the following problems? 1. Little interest or pleasure in doing things: not at all 2. Feeling down, depressed, or hopeless: not at all 3. Trouble falling or staying asleep, or sleeping too much: not at all 4. Feeling tired or having little energy: not at all 5. Poor appetite or overeating: not at all 6. Feeling bad about yourself - or that you are a failure or have let yourself or your family down: not at all 7. Trouble concentrating on things, such as reading the newspaper or watching television: not at all 8. Moving or speaking so slowly that other people could have noticed. Or the opposite - being so fidgety or restless that you have been moving around a lot more than usual: not at all 9. Thoughts that you would be better off or of hurting yourself in some way: not at all Total score: 0 Depression Screening Interpretation: Negative Depression Screening Done: Yes 08837 - PHQ-9 Billing: Yes Source: Developed by Drs. Sajan Winter, Odilia Saxena, Maldonado Ramos and colleagues, with an educational ric from [employer]. Thrive Questionnaire Date Thrive assessed: 07/28/25 I am a: Patient What is your living situation today?: I have a steady place to live Within the past 12 months, did the food you bought not last and you didn't have the money to get more?: Never true Within the past 12 months, did you worry whether your food would run out before you got money to buy more?: Never true Do you have trouble paying for medicines?: No Do you have trouble getting transportation to medical appointments?: No Do you have trouble paying your heating and electricity bill?: No Do you have trouble taking care of your child, family member or friend?: No Do you have trouble with day-to-day activities such as bathing, preparing meals, shopping, managing finances, etc.?: No Are you currently unemployed and looking for a job?: No Are you interested in more education?: No Please select the resources that you would like help with: None Currently or been in a relationship where the following occur: No concerns reported THRIVE Score: 0 AUDIT C Alcohol Use Questionnaire (AUDIT-C) 1. How often do you have a drink containing alcohol?: 2-4 times a month 2. How many drinks containing alcohol do you have on a typical day when you are drinking?: 1 or 2 3. How often do you have six or more drinks on one occasion?: Never Total Score: 2 Score Reviewed/Action Taken: Yes MARCELLA-7 AMB Questionnaire MARCELLA-7 Date MARCELLA - 7 assessed: 08/03/25 Feeling nervous, anxious, or on edge: 0 = Not at all Not being able to stop or control worryin = Not at all Worrying too much about different things: 0 = Not at all Trouble relaxin = Not at all Being so restless that it is hard to sit still: 0 = Not at all Becoming easily annoyed or irritable: 0 = Not at all Feeling afraid as if something awful might happen: 0 = Not at all Total MARCELLA-7 score (0-4 normal; 5-9 mild; 10-14 moderate; 15-21 severe): 0 Source: Developed by Drs. Sajan Winter, Odilia Saxena, Maldonado Ramos and colleagues, with an educational ric from [employer]. MARCELLA-7 Assessment Billing MARCELLA-7 Assessment Tool: MARCELLA-7 Assessment 02272 Physical exam (Primary Care) Vital Signs: Last Vital Signs Pulse 80 08/03/25 08:06 BP 120/80 08/03/25 08:06 Pulse Ox 97 08/03/25 08:06 BMI result Body Mass Index 30.4 Tobacco/Smoking Status: Tobacco use Status Tobacco use date assessed 08/03/25 08/03/25 08:08 Patient Tobacco Use Status Never used Tobacco 08/03/25 08:08 e-Cigarette/Vaping Use Never Used 08/03/25 08:08 PHQ-9: PHQ-9 Score PHQ-9: Total score 0 08/03/25 08:08 Depression Screening Interpretation: Negative Thrive Assessment: Date of Thrive Assessment Date Thrive assessed 07/28/25 08/03/25 08:08 Currently or been in a relationship where the following occur: No concerns reported Coding Level of Care Code Est Pt Prev Care 40-64y(16189) Diagnoses Physical exam Z00.00 Vitamin D deficiency E55.9 Osteopenia M85.80 Constipation K59.00 Additional Codes MARCELLA-7 Assessment Billing - MARCELLA-7 Assessment Tool: MARCELLA-7 Assessment 91041 ([id number]) PHQ-9 - 11766 - PHQ-9 Billing: Yes ([id number]) Assessment & Plan Assessment & Plan (1) Physical exam: Code(s): Z00.00 - Encounter for general adult medical examination without abnormal findings Category: Medical (2) Vitamin D deficiency: Code(s): E55.9 - Vitamin D deficiency, unspecified Category: Medical (3) Osteopenia: Code(s): M85.80 - Other specified disorders of bone density and structure, unspecified site Category: Medical (4) Constipation: Code(s): K59.00 - Constipation, unspecified Category: Medical Plan . Orders: Orders Complete Blood Count Auto Diff Today Z00.00 - Encounter for general adult medical examination without abnormal findings Vitamin D 25-OH Total Today E55.9 - Vitamin D deficiency, unspecified Comprehensive [place]. Panel Fast Today Z00.00 - Encounter for general adult medical examination without abnormal findings TSH reflex Free T4 Today Z00.00 - Encounter for general adult medical examination without abnormal findings UA CC w/rflx Micro + Cult Today Z00.00 - Encounter for general adult medical examination without abnormal findings Lipid Panel Today Z00.00 - Encounter for general adult medical examination without abnormal findings XR DEXA axial skeleton Today E55.9 - Vitamin D deficiency, unspecified, M85.80 - Other specified disorders of bone density and structure, unspecified site Medications: Refilled fluticasone propionate 50 mcg/actuation (Allergy Relief (fluticasone)) administer into each nostril 1 spray intranasal BID 16 grams 3RF 30 days losartan 25 mg PO DAILY 90 tabs 1RF 90 days atorvastatin 20 mg PO DAILY 90 tabs 1RF 90 days
--- OUTSIDE RECORDS SUMMARY | 2025-08-03 08:58 | XMS_ITS | Clinical Summary ---
Author Organization [facility] Address [address] [place] [address] Phone Care Team Providers Care Grape Crusher Name Role Phone Gerson Flaherty MD Primary Care Provider [phone] Social History Tobacco Use Types Packs/Day Years Used Date Smoking Tobacco: Never Assessed Education Answer Date Recorded Are you interested in more education? Not on jihan e 03/21/2023 Are you concerned about learning? Not on file 03/21/2023 No 03/21/2023 No 03/21/2023 Digital Access Answer Date Recorded No 04/19/2023 No 04/19/2023 No 04/19/2023 Reliable internet access at home? Not on file 04/19/2023 Device with a working camera? Not on file Comments Unknown Sex and Gender Information Value Date Recorded Sex Assigned at Not on file Legal Sex Female 9:47 PM EDT Gender Identity Not on file Sexual Orientation Not on file Plan of Treatment Health Maintenance Due Date Last Done Comments Adult Td,Tdap Booster 1961 LIPID PANEL 1961 DEPRESSION SCREENING 1973 SMOKING Hx and SMOKELESS TOBACCO SCREENING 1974 HEPATITIS C SCREENING 1979 HIV ONE-TIME SCREENING (18-65 YEARS) 1979 PAP SMEAR 1982 MAMMOGRAM 2001 COLOGUARD 2006 COLONOSCOPY 2006 COLORECTAL CANCER SCREENING 2006 FIT TEST 2006 FOBT 2006 SIGMOIDOSCOPY 2006 VIRTUAL COLONOSCOPY 2006 PNEUMOCOCCAL VACCINES (50+ years) (1 of 1 - PCV) 2011 ZOSTER VACCINES (2 of 2) 10/14/2018 08/19/2018 INFLUENZA VACCINE (#1) 2025 , 09/30/2019, 10/31/2018, Additional history exists COVID-19 VACCINE ( season) 2025 04/02/2021, 03/04/2021 RSV VACCINE (1 - 1-dose 75+ series) 2036 HEPATITIS A VACCINES Aged Out No long er eligible based on patient's age to complete this topic HIB VACCINES Aged Out No longer eligi ble based on patient's age to complete this topic MENINGOCOCCAL VACCINES (ACWY) Aged Out No longer eligible based on patient's age to complete this topic MENINGOCOCCAL VACCINES (B) Aged Out N o longer eligible based on patient's age to complete this topic Medical Devices Not on file Insurance [employer] POS EPO [employer] [place] [address] [place] [id number] POS EPO O POS EPO O POS EPO O POS EPO O POS EPO O POS EPO [facility] POS EPO Care Teams Grape Crusher Relationship Specialty Start Date End Date Gerson Flaherty MD [address] [place] [address] PCP - General 09/09/17 Additional Source Comments The information contained in this document represents components of the legal health record. It is not the complete legal health record.[facility]
== END 2025-08-03 08:35 | disposition home or self-care (01) ==
LOC: HO.HMCC 08:05
PROVIDERS: PCP Nurse Practitioner Family; Visit Provider Nurse Practitioner Family
DX: Z00.00 Encounter for general adult medical examination without abnormal findings (principal); E55.9 Vitamin D deficiency, unspecified; M85.80 Other specified disorders of bone density and structure, unspecified site; K59.00 Constipation, unspecified

== ENCOUNTER 2025-08-15 15:42 | Outpatient (AMB) | payer BC, SELFPAY ==
[2025-08-15 15:50] VITALS: BP 144/90; PULSE 104; RESP 16; TEMP 37; O2SAT 97; BMI 30.2
--- NOTE | 2025-08-15 15:50 | MHC.OFFWIV ---
Intake Vital Signs 08/15/25 15:50 Height 5 ft 4 in Weight 176 lb BMI 30.2 BP 144/90 H Blood Pressure Location Rt brachial Position Sitting Respiration 16 Pulse 104 H Pulse Source Pulse Oximeter Temp 98.6 F Temp Source Oral Pulse Oximetry (%) 97 Oxygen Delivery Method Room Air Intake Visit Reasons: EP sinus infection Patient Tobacco Use Status: Never used Tobacco Accompanied by: Self / Same As Patient Allergies aspartame Allergy (Severe, Verified 08/15/25 15:54) mouth feels on fire, throat swells codeine (CODEINE) Allergy (Mild, Verified 08/15/25 15:54) NAUSEA & VOMITING Codeine Sulfate Allergy (Mild, Uncoded 11/04/24 09:21) nausea, vomiting HPI HPI Comments History of Present Illness Details History of Present Illness - The patient is a 64-year-old female presenting with facial pain and swelling, suspected to be due to sinusitis. - She reports sinus-related symptoms since last Friday, with significant facial swelling and pain. - The pain is severe, with a sensation of pressure in the head, and her teeth hurt as well. - Ubrv-fyk-eluswpf medications have not provided relief, and she reports no fever or purulent nasal discharge. - She has a history of sinus infections, with the last episode occurring five years ago. - The patient uses Flonase and Zyrtec regularly for year-round allergies. - She has a headache and swelling under her left eye. - Has not had a sinus infection in 5 years - She denies cough, fever, chills, ear pain, n/v/d, or abd pain. Physical Exam General: Cooperative, healthy appearing, comfortable, no acute distress and well developed Head: Normal to inspection Ears: Hearing grossly normal bilaterally. No tragus or mastoid tenderness noted. Auditory canals clear bilaterally. TM's normal, not bulging. No fluid noted. Nose: Normal external nose present. Moist mucosa. Turbinates normal bilaterally, not boggy. Face and sinus: Tenderness to palpation of the frontal and maxillary sinuses bilaterally. Neck: Normal visual inspection and Yes full ROM. No lymphadenopathy noted. Respiratory: Normal respiratory effort and able to speak in complete sentences. Clear to auscultation bilaterally Cardiovascular: Regular rate and rhythm. Normal S1 and S2 GI: Normal to inspection. Soft to palpation and nontender, nondistended. No guarding noted. Skin: No rashes or lesions noted PFSH Medical History Breast cyst High cholesterol Hypertension Osteopenia Surgical History H/O colonoscopy History of bunionectomy H/O ovarian cystectomy Family History Mother Lung cancer Father Prostate cancer Hypertension Other Substance use disorder Social History Housing: House Alcohol intake: current Alcohol intake frequency: a few times a week Patient Tobacco Use Status: Never used Tobacco e-Cigarette/Vaping Use: Never Used service: No Current occupational status: employed Sexual orientation: Straight/Heterosexual Gender identity: Female Cognitive needs: No Hearing needs: No Vision needs: Yes Physical Exam Vital Signs: Last Vital Signs Temp 98.6 F 08/15/25 15:50 Pulse 104 H 08/15/25 15:50 Resp 16 08/15/25 15:50 BP 144/90 H 08/15/25 15:50 Pulse Ox 97 08/15/25 15:50 Oxygen Delivery Method Room Air 08/15/25 15:50 BMI result Body Mass Index 30.2 Assessment & Plan Assessment & Plan (1) Sinusitis: Code(s): J32.9 - Chronic sinusitis, unspecified Qualifiers: Sinusitis location: maxillary Chronicity: acute Recurrence: non-recurrent Qualified Code(s): J01.00 - Acute maxillary sinusitis, unspecified Plan Most likely sinusitis plan - steam showers - tylenol or motrin as needed for pain or fever - flonase and zytec as needed - augmentin BID for 10 days - prednisone for 5 days - follow up with PCP Medications: New amoxicillin-pot clavulanate 875-125 mg 1 tab PO Q12H 14 tabs 0RF prednisone 40 mg (2 x 20 mg) PO DAILY 10 tabs 0RF 5 days Coding Level of Care Code Est Pt Level 3 (45356) Diagnoses Acute non-recurrent maxillary sinusitis J01.00 Sinusitis location: maxillary Chronicity: acute Recurrence: non-recurrent
== END 2025-08-15 16:19 | disposition home or self-care (01) ==
PROVIDERS: PCP Nurse Practitioner Family; Visit Provider Physician Assistant Medical
DX: J01.00 Acute maxillary sinusitis, unspecified (principal)

== ENCOUNTER 2025-09-02 07:39 | Outpatient (REF) | payer BC, SELFPAY ==
[2025-09-02 10:52] LABS: Alanine Aminotransferase 49 U/L (0-31); Albumin Level 4.6 g/dL (3.5-5.0); Alkaline Phosphatase 67 U/L (39-117); Anion Gap 10 (12-20); Aspartate Amino Transferase 32 U/L (5-31); Blood Urea Nitrogen 14 mg/dL (9-16); Calcium 9.1 mg/dL (8.4-10.2); Carbon Dioxide 28 mmol/L (22-29); Chloride 108 mmol/L (96-108); Estimated Glomerular Filt Rate > 60; Potassium 3.9 mmol/L (3.3-5.1); Sodium 142 mmol/L (135-145); Total Protein 6.9 g/dL (6.5-8.0)
[2025-09-02 11:04] LABS: HBS Num1 0.00 mIU/mL (0-7.99); HBc Num1 0.05 S/CO (0.00-0.79); HBsAGNum1 0.46 S/CO (0.00-0.99); Hepatitis A Antibody IgM 0.17 Index (0-0.79); Hepatitis B Surface Antigen Negative (Negative); ~HepC Num1 0.05 S/CO (0.00-0.79); ~Hepatitis A Antibody IgM Nonreactive (Nonreactive); ~Hepatitis B Surface Antibody NONREACTIVE (Nonreactive); ~Hepatitis C Antibody Nonreactive (Nonreactive)
== END 2025-09-02 07:40 | disposition home or self-care (01) ==
LOC: HO.HMGCLDS 07:39
PROVIDERS: PCP Nurse Practitioner Family; Visit Provider Nurse Practitioner Family
DX: R74.8 Abnormal levels of other serum enzymes (principal)
CPT/HCPCS: 36415; 80053; 86704; 86706; 86709; 86803; 87340

== ENCOUNTER 2025-10-10 08:11 | Outpatient (REF) | payer BC, SELFPAY ==
--- NOTE | ~2025-10-10 | MM_ITS ---
STUDY: DUAL ENERGY X-RAY ABSORPTIOMETRY / DXA REASON FOR EXAM: Female, 65 years old E55.9 - Vitamin D deficiency, unspecified TECHNIQUE: Bone Mineral Density (BMD) measurements of the lumbar spine and left hip were obtained using [employer] COMPARISON: July 18, 2023 FINDINGS: L1-L4 BMD: 1.063 g/cm2 L1-L4 T score: -1.0. This corresponds to Normal bone density. This represents a 1.1 % increase in bone density compared with prior exam from July 18, 2023. Left femoral neck BMD: 0.773 g/cm2 Left femoral neck T score: -1.9. This corresponds to osteopenia. Left total hip BMD: 0.899 g/cm2 Left total hip T score: -0.9. This corresponds to Normal bone density. This represents a 1.9 % increase in bone density compared with prior exam from July 18, 2023. * - Indicates a statistically significant change. FRAX score: 10 year risk of major osteoporotic fracture 9.9%, 10 year risk of hip fracture 1.3% MM/XR DEXA axial skeleton IMPRESSION: Osteopenia Reference Information: The T-score is the number of standard deviations above or below the standard which is normal for young adults at their peak bone mineral density. The World Health Organization (WHO) interprets the T-scores as follows: At or above -1 SD Normal bone density Between -1 and -2.5 SD Osteopenia At or below -2.5 SD Osteoporosis Electronically signed by: Supriya Phipps MD 10/11/2025 07:45 AM [facility]
== END 2025-10-10 08:12 | disposition home or self-care (01) ==
LOC: HO.MAMMO 08:11
PROVIDERS: PCP Nurse Practitioner Family; Visit Provider Nurse Practitioner Family
DX: M85.80 Other specified disorders of bone density and structure, unspecified site (principal); Z13.820 Encounter for screening for osteoporosis; M85.852 Other specified disorders of bone density and structure, left thigh
CPT/HCPCS: 77080

== ENCOUNTER → 2025-10-10 08:13 | Outpatient (BNV) | payer BC, SELFPAY | PROVIDERS: PCP Nurse Practitioner Family; Visit Provider Radiology Body Imaging | DX: E28.39 Other primary ovarian failure (principal) | CPT/HCPCS: 77080 ==

== ENCOUNTER 2025-10-15 09:53 | Outpatient (REF) | payer BC, SELFPAY ==
--- OUTSIDE RECORDS SUMMARY | 2025-10-15 09:56 | XMS_ITS | Clinical Summary ---
Author Organization [facility] Address [address] [place] [address] Phone Care Team Providers Care Senior Contracts Administrator Name Role Phone Gerson Flaherty MD Primary Care Provider [phone] Social History Tobacco Use Types Packs/Day Years [...] topic Medical Devices Not on file Insurance [employer] POS EPO [employer] [place] [address] [place], [place] [address]O POS EPO O POS EPO O POS EPO O POS EPO O POS EPO O POS EPO [facility] POS EPO Care Teams Senior Contracts Administrator Relationship Specialty Start Date End Date Gerson Flaherty MD [address] [place] [address] PCP - General 09/09/17 Additional Source Comments The information contained in this document represents components of the legal health record. It is not the complete legal health record.[facility]
--- OUTSIDE RECORDS SUMMARY | 2025-10-15 09:56 | XMS_ITS | Data Portability ---
Author Organization [facility], [facility] Address [address] [place] [address] Care Team Providers Care Jet Pilot Name Role Phone [facility] Primary Care Provider Assessment No assessment recorded. Plan of Treatment Reminders Order Date Submit Date Provider Last Modified By Organization Details Last Modified Time Details Appointments None recorded. Lab rapid SARS CoV 2 Ag, QL IA, respiratory specimen [id number] [place] [address], [address] [place] [address], [phone], 3 20:26:21 rapid SARS CoV 2 Ag, QL IA, respiratory specimen [address] [place] [address], [address] [place] [address], [phone], 3 16:12:30 Referral None recorded. Procedures None recorded. Surgeries None recorded. Imaging None recorded. Medication Orders Paxlovid 300 mg (150 mg x 2)-100 mg tablets in a dose pack 2022 023 [id number], [address], [place], [id number], 3 16:23:26 prednisone 20 mg tablet 2022 023 [id number], [address], [place], [id number], 3 16:23:28 benzonatate 100 mg capsule 2022 023 [facility][id number], [address], [place], [phone], 16:23:27 Patient TargetsNo targets recorded. Patient Instructions Encounter Date Encounter Id Patient Instructions Last Modified By Organization Details Last Modified Time 12/08/2022 [id number] coronavirus (covid-19): care instructions leyda Not available [...] care for yourself at home? Take an wtbn-mpn-bqbhvkd pain medicine. Avoid Ibuprofen, Aleve and Aspirin if . If the doctor prescribed antibiotics, take them as directed. Do not stop taking them just because you feel better. You need to take the full course of antibiotics. Be careful when taking lifc-yba-fhlgchj cold or influenza (flu) medicines and Tylenol [...] and isolate from others in your home. Y ou are likely most infectious during these first 5 days. W ear a high-quality mask if you must be around others at home and in public. Do not go places where you are unable to wear a mask. For travel guidance, see CDC s Travel webpage. Do not travel. Stay home and separate from others as much as possible. Use a separate bathroom, if possible. Take steps to improve ventilation at home, if possible. Don t share personal household items, like cups, towels, and utensils. Monitor your symptoms. If you have an emergency warning sign (like trouble breathing), seek emergency medical care immediately. If you had symptoms and: Your symptoms are improving You may end isolation after day 5 if: Y ou are fever-free for 24 hours (without the use of fever-reducing medication). Your symptoms are not improving Continue to isolate until: Y ou are fever-free for 24 hours (without the use of fever-reducing medication). Your symptoms are improving. R egardless of when you end isolation Until at [...] masking (see below). For travel guidance, see CDC s Travel webpage. Not available 12/08/2022 16:22:47 [...] wear a mask. For travel guidance, see [facility] s Travel webpage. Do not travel. Stay home and separate from others as much as possible. Use a separate bathroom, if possible. Take steps to improve ventilation at home, if possible. Don t share personal household items, like cups, [...] masking (see below). For travel guidance, see [facility] s Travel webpage. Not available 12/08/2022 15:57:19 12/30/2022 [id number] COVID test was negative - OK to travel. [email or web address] Not available 12/30/2022 20:26:13 Reason for Referral None Reported. Results Created Date Observation Date Name Description Value Unit Range Abnormal Flag Note LastModifiedBy Organization Detail LastModifiedTime 12/08/1912/08/2022 rapid SARS CoV 2 Ag, QL IA, respi rator y speci men Unknown Analyte Normal =Negat epi Not Available [facility] [place], [address], 12/08/2022 15:25:44 12/08/1912/08/2022 rapid SARS CoV 2 Ag, QL IA, respi rator y speci men Unknown Analyte positi ve Not Available [facility] [place], [address], 12/08/2022 15:25:44 12/30/19 23 12/30/2022 rapid SARS CoV 2 Ag, QL IA, respi rator y speci men Unknown Analyte negati ve Not Available [address], [place], [address], 12/30/2022 19:20:14 Result Notes None recorded. Problems Name Problem SNOMED Code Status Onset Date Resolution Date Notes Provider Name and Address Organization Details Recorded Time Hypertensive disorder 53483756 Active 2022 BEBO DEPINTO null, [place] - [facility] 3 15:31:31 Hypercholestero lemia 90023518 Active 2022 BEBO DEPINTO null, [place] - [...] Name and Address Organization Details Recorded Time 563452 codeine medicatio n tachycard ia Not available [...] Available No t Available Vitals Date Recorded Pain severity - 0-10 verbal numeric rating [Score] - Reported Body height Body mass index (BMI) Body weight Body temperature Respiratory rate Oxygen saturation Heart rate Systolic And Diastolic Provider Name and Address Organization Details Last Updated DateTime 3 0 162.56 cm 29.5 kg/m2 98560.8 9 g 97.5 [degF] 18 /min 98 % 92 /min 125/85 mm[Hg] BEBO JOSE L [employer] - [facility] 3 15:34:31 Date Recorded Body height Body mass index (BMI) Body weight Heart rate Oxygen saturation Respiratory rate Body temperature Systolic And Diastolic Provider Name and Address Organization Details Last Updated DateTime 3 162.56 cm 29.9 kg/m2 00877.0 7 g 94 /min 99 % 16 /min 98.2 [degF] 153/83 mm[Hg] NAVA SWANN [place] - [facility] 3 19:18:20 Social History Question Answer Notes LastModified by spotflux Details LastModified Time Tobacco Smoking Status Never Smoker BEBO mccauley [employer] - [facility] 12/08/2022 15:31:45 Have You Recently Traveled Abroad? No Information not available 12/08/2022 Sex: Unknown Functional Status Question Answer Note LastModified by spotflux Details LastModified Time How many times per week do you consume alcohol? <1 time per week Information not available 12/08/2022 Do you use any illicit or recreational drugs? No Information not available 12/08/2022 Do you or have you ever used any other forms of tobacco or nicotine? No Information not available 12/08/2022 What is your level of alcohol consumption? Occasional Information not available 12/08/2022 Mental Status None recorded. Family History Relationship [...] Diagnosis SNOMED-CT Code Diagnosis ICD10 Code Diagnosis IMO Codes Diagnosis Note [id number] [address] [address] [address] [place] [address] 12/12/2019 09:57:36 12/12/2019 11:15:25 [id number] [address] [facility] [place] [address] 12/19/2018 08:29:36 12/19/2018 09:17:23 [id number] [address] [address] [place] [address] 11/23/2016 10:20:49 11/23/2016 11:39:15 [id number] [address] [place] [address] 01/18/2016 09:40:36 01/18/2016 11:13:19 [id number] [address] [place] [address] 03/22/2021 08:05:06 03/22/2021 08:56:04 [id number] [address] [place] [address] 04/12/2017 11:14:23 04/12/2017 12:21:13 [id number] [address] [place] [address] 01/28/2017 17:03:46 01/28/2017 18:28:26 [id number] [address] [place] [address] 06/09/2017 14:27:35 06/09/2017 14:47:12 [id number] Moris Ascencio NP [address] [place] [address] 12/08/2022 14:44:59 12/08/2022 16:36:36 Exposure to SARS-CoV-2 207815680 Z20.822 COVID-19 587390574 U07.1 Acute sinusitis 63262833 J01.90 [id number] [facility] [address] [place] [address] 12/30/2022 16:43:51 12/30/2022 20:28:15 Exposure to SARS-CoV-2 514198901 Z20.822 Health Concerns Section Related Observation LastModified by Organization Detai ls LastModified Time None Recorded Concern Status LastModified by Organization Details LastModified Time None Recorded Advance Directives Directive None Recorded Payers Insurance Date Sequence Insurance Name Policy Number Policy Hayward Covered Member ID Hayward Member ID Guarantor Name 12/30/2022 1 [facility] [id number] Ana Rosa Box [id number] Ana Rosa Box Notes Date Note Type Note Provider Name and Address Organization Details Recorded Time 12/08/2022 text/html COVID-19 SymptomsReported by Patient CongestionReported by Patientnasal congestion with post nasal drip x 3 days. denies nay fever or fever with chills. no SOB or respiratory distress. Moris Ascencio NP [address] [place], [address], [employer] 12/08/2022 16:23:23 12/30/2022 text/html COVID-19 SymptomsReported by PatientUpper Respiratory SymptomsFor covid-19 signs and symptoms, patient reportscough improving/resolved,fev er improving/resolved, andsore throat resolved.The patient reports that she needs a repeat COVID test so she can go to on a Cruise. No current symptoms. NUPUR MARTIN [address] [place], [address], [place] - [facility] 12/30/2022 22:30:15 OBGyn Episode No OBEpisode recorded.
[2025-10-15 11:42] LABS: Alanine Aminotransferase 39 U/L (0-31); Albumin Level 4.7 g/dL (3.5-5.0); Alkaline Phosphatase 74 U/L (39-117); Aspartate Amino Transferase 27 U/L (5-31); Total Protein 7.0 g/dL (6.5-8.0)
== END 2025-10-15 09:54 | disposition home or self-care (01) ==
LOC: HO.HMGCLDS 09:53
PROVIDERS: PCP Nurse Practitioner Family; Visit Provider Nurse Practitioner Family
DX: Z01.84 Encounter for antibody response examination (principal); R74.8 Abnormal levels of other serum enzymes
CPT/HCPCS: 36415; 80076; 86015; 86301; 86381

== ENCOUNTER 2025-10-27 08:21 | Outpatient (REF) | payer BC, SELFPAY ==
--- NOTE | ~2025-10-27 | US_ITS ---
CLINICAL HISTORY: R74.8 - Abnormal levels of other serum enzymes US abdomen complete Comparison: None provided Findings: The visualized pancreas head is normal. The visualized aorta and inferior vena cava are normal caliber. The liver is normal in size, right lobe length is 14.1 cm. Diffusely echogenic liver parenchyma, suggestive of steatosis, small geographic hypoechogenicity of the right lobe near gallbladder fossa is likely focal fatty sparing. No suspicious hepatic lesion. No intrahepatic bile duct dilatation. The common duct is 2 mm in diameter. Physiologic distention of the gallbladder, no shadowing stone, punctate echogenic focus along the gallbladder body wall, non-mobile, no gallbladder wall thickening, no sonographic Rios's sign. The main portal vein is patent with antegrade flow. The right kidney is normal, 9.0 cm in length. The left kidney demonstrates simple cyst 11 mm in the midpole, otherwise normal, 11.2 cm in length. The spleen is normal, 9.3 cm in length. No free fluid in the abdomen. Impression: 1. Probable punctate gallbladder polyp or adherent sludge ball. 2. Hepatic steatosis with focal fatty sparing near gallbladder fossa. 3. Left renal cyst. This document has been electronically signed by: Vickie Duckworth MD on 10/27/2025 14:49:35
--- OUTSIDE RECORDS SUMMARY | 2025-10-27 08:41 | XMS_ITS | Clinical Summary ---
Author Organization [facility] Address [address] [place] [address] Phone Care Team Providers Care Supervisor Benzene Refining Name Role Phone Gerson Flaherty MD Primary Care Provider [phone] Social History Tobacco Use Types Packs/Day Years [...] topic Medical Devices Not on file Insurance [employer] O POS EPO [employer] O [place] [address] [place] [id number] POS EPO O POS EPO O POS EPO O POS EPO O POS EPO O POS EPO [facility] POS EPO Care Teams Supervisor Benzene Refining Relationship Specialty Start Date End Date Gerson Flaherty MD [address] [place] [address] PCP - General 09/09/17 Additional Source Comments The information contained in this document represents components of the legal health record. It is not the complete legal health record.[facility]
== END 2025-10-27 08:22 | disposition home or self-care (01) ==
LOC: HO.HMGCX 08:21
PROVIDERS: PCP Nurse Practitioner Family; Visit Provider Nurse Practitioner Family
DX: R74.8 Abnormal levels of other serum enzymes (principal)
CPT/HCPCS: 76700

== ENCOUNTER → 2025-10-27 08:22 | Outpatient (BNV) | payer BC, SELFPAY | PROVIDERS: PCP Nurse Practitioner Family; Visit Provider Radiology Diagnostic Radiology | DX: K76.0 Fatty (change of) liver, not elsewhere classified (principal); N28.1 Cyst of kidney, acquired | CPT/HCPCS: 76700 ==